=== PATIENT | female | born 1935 | race Caucasian/White ===

== ENCOUNTER → 2018-02-06 | Outpatient (CLI) | payer MEDICARE, OTHER ==
[2018-02-06 14:15] LABS: BASO % 0.3 % (0.0-1.0); EOS # 0.1 10^3/uL (0.0-0.50); EOS % 0.5 % (0.0-3.0); HEMATOCRIT 40.1 % (36.0-47.0); HEMOGLOBIN 12.4 g/dl (12.0-15.5); IMMATURE GRANULOCYTE % 0.6 % (0-3.0); LYMPH # 1.1 10^3/uL (1.5-4.5); LYMPH % 10.2 % (24.0-44.0); MEAN CORPUSCULAR HEMOGLOBIN 26.5 pg (27.0-33.0); MEAN CORPUSCULAR HGB CONC 30.9 g/dl (32.0-36.5); MEAN CORPUSCULAR VOLUME 85.7 fl (80.0-96.0); MONO # 0.6 10^3/uL (0.0-0.8); MONO % 5.7 % (0.0-5.0); NEUTROPHILS # 8.6 10^3/uL (1.8-7.7); NEUTROPHILS % 82.7 % (36.0-66.0); PLATELET COUNT, AUTOMATED 296 10^3/uL (150-450); RED BLOOD COUNT 4.68 10^6/uL (4.00-5.40); RED CELL DISTRIBUTION WIDTH 14.2 % (11.5-14.5); WHITE BLOOD COUNT 10.4 10^3/uL (4.0-10.0)
[2018-02-06 14:47] LABS: ALBUMIN 3.4 GM/DL (3.2-5.2); ALBUMIN/GLOBULIN RATIO 0.83 (1.00-1.93); ALKALINE PHOSPHATASE 79 U/L (45-117); ALT/SGPT 21 U/L (12-78); ANION GAP 10 MEQ/L (8-16); AST/SGOT 13 U/L (7-37); BILIRUBIN,TOTAL 0.7 MG/DL (0.2-1.0); BLOOD UREA NITROGEN 35 MG/DL (7-18); CALCIUM LEVEL 9.7 MG/DL (8.8-10.2); CARBON DIOXIDE LEVEL 28 MEQ/L (21-32); CHLORIDE LEVEL 107 MEQ/L (98-107); CREATININE FOR GFR 1.47 MG/DL (0.55-1.30); FREE T4 1.34 NG/DL (0.76-1.46); GLOMERULAR FILTRATION RATE 36.3 (>32); GLUCOSE, FASTING 109 MG/DL (70-100); MAGNESIUM LEVEL 2.2 MG/DL (1.8-2.4); NT-PRO BNP 2890 PG/ML (<450); SODIUM LEVEL 145 MEQ/L (136-145); TOTAL PROTEIN 7.5 GM/DL (6.4-8.2)
[2018-02-06 14:49] LABS: POTASSIUM SERUM 5.3 MEQ/L (3.5-5.1)
== END ==
LOC: M WUC 10:34
DX: I48.91 Unspecified atrial fibrillation (principal)

== ENCOUNTER 2018-02-07 16:32 | Inpatient (IN) | payer MEDICARE, OTHER ==
[2018-02-07 17:55] LABS: BASO % 0.2 % (0.0-1.0); EOS % 0.4 % (0.0-3.0); LYMPH # 1.2 10^3/uL (1.5-4.5); LYMPH % 11.5 % (24.0-44.0); MEAN CORPUSCULAR HEMOGLOBIN 27.1 pg (27.0-33.0); MEAN CORPUSCULAR HGB CONC 31.6 g/dl (32.0-36.5); MEAN CORPUSCULAR VOLUME 85.8 fl (80.0-96.0); MONO # 1.1 10^3/uL (0.0-0.8); MONO % 10.4 % (0.0-5.0); NEUTROPHILS # 8.1 10^3/uL (1.8-7.7); NEUTROPHILS % 76.5 % (36.0-66.0); PLATELET COUNT, AUTOMATED 261 10^3/uL (150-450); RED BLOOD COUNT 4.43 10^6/uL (4.00-5.40); RED CELL DISTRIBUTION WIDTH 14.2 % (11.5-14.5); WHITE BLOOD COUNT 10.5 10^3/uL (4.0-10.0)
[2018-02-07 18:19] LABS: INR 1.28; PROTHROMBIN TIME 16.2 SECONDS (12.1-14.4)
[2018-02-07 18:20] LABS: PARTIAL THROMBOPLASTIN TIME 34.6 SECONDS (25.4-37.6)
[2018-02-07 18:25] LABS: ANION GAP 8 MEQ/L (8-16); BLOOD UREA NITROGEN 31 MG/DL (7-18); CALCIUM LEVEL 9.1 MG/DL (8.8-10.2); CARBON DIOXIDE LEVEL 24 MEQ/L (21-32); CHLORIDE LEVEL 111 MEQ/L (98-107); CK-MB VALUE MASS < 1.0 NG/ML (<3.6); CPK CREATINE PHOSPHOKINASE 126 U/L (26-192); CREATININE FOR GFR 1.43 MG/DL (0.55-1.30); GLOMERULAR FILTRATION RATE 37.5 (>32); GLUCOSE, FASTING 99 MG/DL (70-100); MB/CK RELATIVE INDEX 0.79 (< OR =4); SODIUM LEVEL 143 MEQ/L (136-145); TROPONIN I < 0.02 NG/ML (< 0.10)
[2018-02-07 18:30] LABS: POTASSIUM SERUM 5.3 MEQ/L (3.5-5.1)
[2018-02-07 21:00] LABS: ERYTHROCYTE SEDIMENTATION RATE 61 mm/hr (0-30)
[2018-02-07] MEDS: METOPROLOL 5 MG/5 ML VIAL IV ×4 (21:00→21:14)
[2018-02-07] MEDS: METOPROLOL TART 50 MG TAB PO (21:00)
[2018-02-07] MEDS: ceFAZolin SOD 1 GM in D5W MINI-BAG PLUS 50 ML IV (21:10)
[2018-02-07] MEDS ORDERED: MORPHINE 4 MG/ML 1ML VIAL/SYRINGE (J2270) IV (21:15)
[2018-02-07] MEDS ORDERED: BISACODYL 5 MG TAB PO (21:15)
[2018-02-07] MEDS ORDERED: ONDANSETRON 4MG/2ML VIAL (J2405) IV (21:15)
[2018-02-07] MEDS ORDERED: BISACODYL 10 MG SUPP PR (21:15)
[2018-02-07] MEDS ORDERED: METOPROLOL 5 MG/5 ML VIAL IV (22:30)
[2018-02-07] MEDS: CLINDAMYCIN 600 MG in APPROPRIATE DILUENT 1 EA IV (23:00)
[2018-02-07 23:06] LABS: CK-MB VALUE MASS 1.2 NG/ML (<3.6); CPK CREATINE PHOSPHOKINASE 62 U/L (26-192); MB/CK RELATIVE INDEX 1.93 (< OR =4); TROPONIN I < 0.02 NG/ML (< 0.10)
[2018-02-08] MEDS: CLINDAMYCIN 600 MG in APPROPRIATE DILUENT 1 EA IV ×4 (04:57→23:04)
[2018-02-08] MEDS: FUROSEMIDE 40 MG/4 ML VIAL (J1940) IV ×5 (04:57→23:05)
[2018-02-08] MEDS: HEPARIN SOD (PORCINE) 5000 UNITS/ML VIAL SC ×2 (05:02→15:36)
[2018-02-08 08:24] LABS: HEMATOCRIT 35.6 % (36.0-47.0); HEMOGLOBIN 11.3 g/dl (12.0-15.5); MEAN CORPUSCULAR HEMOGLOBIN 26.4 pg (27.0-33.0); MEAN CORPUSCULAR HGB CONC 31.7 g/dl (32.0-36.5); MEAN CORPUSCULAR VOLUME 83.2 fl (80.0-96.0); PLATELET COUNT, AUTOMATED 250 10^3/uL (150-450); RED BLOOD COUNT 4.28 10^6/uL (4.00-5.40); RED CELL DISTRIBUTION WIDTH 14.3 % (11.5-14.5); WHITE BLOOD COUNT 10.9 10^3/uL (4.0-10.0)
[2018-02-08 08:42] LABS: ANION GAP 9 MEQ/L (8-16); BLOOD UREA NITROGEN 30 MG/DL (7-18); CALCIUM LEVEL 9.3 MG/DL (8.8-10.2); CARBON DIOXIDE LEVEL 28 MEQ/L (21-32); CHLORIDE LEVEL 106 MEQ/L (98-107); CPK CREATINE PHOSPHOKINASE 54 U/L (26-192); CREATININE FOR GFR 1.45 MG/DL (0.55-1.30); GLOMERULAR FILTRATION RATE 36.9 (>32); GLUCOSE, FASTING 126 MG/DL (70-100); MAGNESIUM LEVEL 1.7 MG/DL (1.8-2.4); POTASSIUM SERUM 3.7 MEQ/L (3.5-5.1); SODIUM LEVEL 143 MEQ/L (136-145); TROPONIN I < 0.02 NG/ML (< 0.10)
[2018-02-08 08:43] LABS: CK-MB VALUE MASS < 1.0 NG/ML (<3.6); MB/CK RELATIVE INDEX 1.85 (< OR =4)
[2018-02-08] MEDS: METOPROLOL TART 25 MG TABLET PO ×2 (08:52→20:22)
[2018-02-08] MEDS: MAG SULF 1GM/100ML (MAG RUN) 1 GM in APPROPRIATE DILUENT 1 EA IV (13:11)
[2018-02-08 13:55] LABS: CK-MB VALUE MASS < 1.0 NG/ML (<3.6); CPK CREATINE PHOSPHOKINASE 53 U/L (26-192); MB/CK RELATIVE INDEX 1.88 (< OR =4); TROPONIN I < 0.02 NG/ML (< 0.10)
[2018-02-08] MEDS: RIVAROXABAN 15 MG TAB (XARELTO) PO (20:23)
[2018-02-09] MEDS: METOPROLOL TART 25 MG TABLET PO ×5 (01:18→23:25)
[2018-02-09] MEDS: CLINDAMYCIN 600 MG in APPROPRIATE DILUENT 1 EA IV ×2 (06:15→10:59)
[2018-02-09 07:32] LABS: HEMATOCRIT 36.1 % (36.0-47.0); HEMOGLOBIN 11.4 g/dl (12.0-15.5); MEAN CORPUSCULAR HEMOGLOBIN 26.5 pg (27.0-33.0); MEAN CORPUSCULAR HGB CONC 31.6 g/dl (32.0-36.5); MEAN CORPUSCULAR VOLUME 83.8 fl (80.0-96.0); PLATELET COUNT, AUTOMATED 239 10^3/uL (150-450); RED BLOOD COUNT 4.31 10^6/uL (4.00-5.40); RED CELL DISTRIBUTION WIDTH 14.2 % (11.5-14.5); WHITE BLOOD COUNT 8.3 10^3/uL (4.0-10.0)
[2018-02-09 07:58] LABS: ANION GAP 7 MEQ/L (8-16); BLOOD UREA NITROGEN 36 MG/DL (7-18); CALCIUM LEVEL 8.7 MG/DL (8.8-10.2); CARBON DIOXIDE LEVEL 32 MEQ/L (21-32); CHLORIDE LEVEL 103 MEQ/L (98-107); CREATININE FOR GFR 1.57 MG/DL (0.55-1.30); GLOMERULAR FILTRATION RATE 33.7 (>32); GLUCOSE, FASTING 125 MG/DL (70-100); MAGNESIUM LEVEL 1.9 MG/DL (1.8-2.4); POTASSIUM SERUM 3.8 MEQ/L (3.5-5.1); SODIUM LEVEL 142 MEQ/L (136-145)
[2018-02-09] MEDS: AUGMENTIN 500 MG TAB PO ×2 (16:05→23:25)
[2018-02-09] MEDS: RIVAROXABAN 15 MG TAB (XARELTO) PO (18:07)
[2018-02-09] MEDS: SILVER SULFADIAZINE 1% CR 50 GM JAR TOP (23:25)
[2018-02-09] MEDS: FUROSEMIDE 40 MG/4 ML VIAL (J1940) IV (23:25)
[2018-02-10] MEDS: ACETAMINOPHEN TAB 650MG DOSE (2X325MG) PO (03:22)
[2018-02-10] MEDS: METOPROLOL TART 25 MG TABLET PO (05:06)
[2018-02-10 05:22] LABS: HEMATOCRIT 36.4 % (36.0-47.0); HEMOGLOBIN 11.6 g/dl (12.0-15.5); MEAN CORPUSCULAR HEMOGLOBIN 26.6 pg (27.0-33.0); MEAN CORPUSCULAR HGB CONC 31.9 g/dl (32.0-36.5); MEAN CORPUSCULAR VOLUME 83.5 fl (80.0-96.0); PLATELET COUNT, AUTOMATED 255 10^3/uL (150-450); RED BLOOD COUNT 4.36 10^6/uL (4.00-5.40); RED CELL DISTRIBUTION WIDTH 13.8 % (11.5-14.5)
[2018-02-10 05:35] LABS: ANION GAP 11 MEQ/L (8-16); BLOOD UREA NITROGEN 40 MG/DL (7-18); CALCIUM LEVEL 8.7 MG/DL (8.8-10.2); CARBON DIOXIDE LEVEL 29 MEQ/L (21-32); CHLORIDE LEVEL 101 MEQ/L (98-107); CREATININE FOR GFR 1.56 MG/DL (0.55-1.30); GLOMERULAR FILTRATION RATE 33.9 (>32); GLUCOSE, FASTING 132 MG/DL (70-100); MAGNESIUM LEVEL 1.8 MG/DL (1.8-2.4); POTASSIUM SERUM 3.6 MEQ/L (3.5-5.1); SODIUM LEVEL 141 MEQ/L (136-145)
[2018-02-10 08:00] LABS: C REACTIVE PROTEIN QUANTITATIV 8.52 MG/DL (0.00-0.30)
[2018-02-10 08:02] LABS: ERYTHROCYTE SEDIMENTATION RATE 70 mm/hr (0-30)
[2018-02-10] MEDS: AUGMENTIN 500 MG TAB PO ×2 (08:15→20:42)
[2018-02-10] MEDS: SILVER SULFADIAZINE 1% CR 50 GM JAR TOP (11:13)
[2018-02-10 12:21] LABS: APPEARANCE, URINE CLEAR (CLEAR); BACTERIA, URINE AUTO NEGATIVE (NEGATIVE); BILIRUBIN, URINE AUTO NEGATIVE (NEGATIVE); BLOOD, URINE BLOOD NEGATIVE (NEGATIVE); COLOR, URINE YELLOW (YELLOW); GLUCOSE, URINE (UA) AUTO NEGATIVE (NEGATIVE); KETONE, URINE AUTO NEGATIVE (NEGATIVE); LEUKOCYTE ESTERASE, URINE AUTO NEGATIVE (NEGATIVE); NITRITE, URINE AUTO NEGATIVE (NEGATIVE); PROTEIN, URINE AUTO NEGATIVE (NEGATIVE); RBC, URINE AUTO 0 /HPF (0-3); SPECIFIC GRAVITY URINE AUTO 1.016 (1.002-1.035); SQUAMOUS EPITHELIAL CELL UR AU 2 /HPF (0-6); UROBILINOGEN, URINE AUTO 0.2 mg/dL (0.0-2.0); WBC, URINE AUTO 2 /HPF (0-3)
[2018-02-10] MEDS: LOSARTAN 50 MG TAB PO (13:21)
[2018-02-10] MEDS: METOPROLOL TART 50 MG TAB PO ×2 (13:22→20:43)
[2018-02-10 14:19] LABS: RHEUMATOID FACTOR QUANT < 10.0 IU/ML (<15.0)
[2018-02-10] MEDS: RIVAROXABAN 15 MG TAB (XARELTO) PO (18:23)
[2018-02-11 05:13] LABS: HEMATOCRIT 36.1 % (36.0-47.0); HEMOGLOBIN 11.5 g/dl (12.0-15.5); MEAN CORPUSCULAR HEMOGLOBIN 26.5 pg (27.0-33.0); MEAN CORPUSCULAR HGB CONC 31.9 g/dl (32.0-36.5); MEAN CORPUSCULAR VOLUME 83.2 fl (80.0-96.0); PLATELET COUNT, AUTOMATED 256 10^3/uL (150-450); RED BLOOD COUNT 4.34 10^6/uL (4.00-5.40); RED CELL DISTRIBUTION WIDTH 13.9 % (11.5-14.5); WHITE BLOOD COUNT 9.5 10^3/uL (4.0-10.0)
[2018-02-11 05:28] LABS: ANION GAP 8 MEQ/L (8-16); BLOOD UREA NITROGEN 40 MG/DL (7-18); CALCIUM LEVEL 8.7 MG/DL (8.8-10.2); CARBON DIOXIDE LEVEL 30 MEQ/L (21-32); CHLORIDE LEVEL 104 MEQ/L (98-107); CREATININE FOR GFR 1.38 MG/DL (0.55-1.30); GLOMERULAR FILTRATION RATE 39.1 (>32); GLUCOSE, FASTING 122 MG/DL (70-100); MAGNESIUM LEVEL 1.9 MG/DL (1.8-2.4); POTASSIUM SERUM 3.7 MEQ/L (3.5-5.1); SODIUM LEVEL 142 MEQ/L (136-145)
[2018-02-11] MEDS: METOPROLOL TART 50 MG TAB PO ×2 (06:09→13:44)
[2018-02-11] MEDS: LOSARTAN 50 MG TAB PO (08:34)
[2018-02-11] MEDS: AUGMENTIN 500 MG TAB PO (10:20)
[2018-02-11] MEDS: RIVAROXABAN 15 MG TAB (XARELTO) PO (17:57)
[2018-02-12 14:22] LABS: ANTINUCLEAR ANTIBODIES DIRECT Negative (Negative)
[2018-02-14 00:10] LABS: ANCA-ATYPICAL <1:20 titer (Neg:<1:20); CYTOPLASMIC NEUTROP AB ANCA-C <1:20 titer (Neg:<1:20); PERINUCLEAR AB ANCA-P <1:20 titer (Neg:<1:20)
== END 2018-02-11 18:35 | disposition home health service (06) | DRG 310 ==
LOC: M PCU 02-09 14:28 → M ED 16:32 → M ED INP 21:01
DX: I48.91 Unspecified atrial fibrillation (principal); L95.9 Vasculitis limited to the skin, unspecified; I10 Essential (primary) hypertension; M10.9 Gout, unspecified; Z95.3 Presence of xenogenic heart valve; Z79.899 Other long term (current) drug therapy; Z90.710 Acquired absence of both cervix and uterus; E66.01 Morbid (severe) obesity due to excess calories; Z68.38 Body mass index [BMI] 38.0-38.9, adult

== ENCOUNTER 2022-05-10 11:13 | Inpatient (IN) | payer OTHER, MEDICARE ==
[2022-05-10] VITALS (9 sets, daily range): BP systolic 80–100; BP diastolic 40–60
[~2022-05-10] VITALS: Ht 157.5 cm; Wt 99.2 kg
[~2022-05-10 11:13] MED LIST: ASPI-527 PO; LOSA100T8 PO; LOSA50TA28 PO; METO1TAB87 PO; METO75TA PO; XARE15TA PO
[2022-05-10 12:36] LABS: HEMATOCRIT 25.1 % (36.0-47.0); HEMOGLOBIN 8.1 g/dl (12.0-15.5); MEAN CORPUSCULAR HEMOGLOBIN 27.4 pg (27.0-33.0); MEAN CORPUSCULAR HGB CONC 32.3 g/dl (32.0-36.5); MEAN CORPUSCULAR VOLUME 84.8 fl (80.0-96.0); RED BLOOD COUNT 2.96 10^6/uL (4.00-5.40); WHITE BLOOD COUNT 7.2 10^3/uL (4.0-10.0)
[2022-05-10 12:56] LABS: PLATELET COUNT, AUTOMATED 53 10^3/uL (150-450)
[2022-05-10 13:00] LABS: ANISOCYTOSIS 1+; LYMPHOCYTES 5 % (16-44); NEUTROPHILS 81 % (28-66); PLATELET ESTIMATE DECREASED (NORMAL)
[2022-05-10 13:02] LABS: BURR CELLS 1+; OVALOCYTES 1+
[2022-05-10 13:16] LABS: RSV AMPLIFICATION NEGATIVE (NEGATIVE)
[2022-05-10 13:22] LABS: ALBUMIN 2.5 G/DL (3.2-5.2); BILIRUBIN,DIRECT 2.1 MG/DL (<0.4); BILIRUBIN,TOTAL 2.9 MG/DL (0.3-1.2); CALCIUM LEVEL 8.2 MG/DL (8.3-10.6); CREATININE FOR GFR 3.04 MG/DL (0.55-1.30); GLOMERULAR FILTRATION RATE 15.5 (>32); POTASSIUM SERUM 4.2 MMOL/L (3.5-5.1); TOTAL PROTEIN 5.9 G/DL (5.7-8.2)
[2022-05-10] MEDS ORDERED: DIGOXIN INJ 0.5 MG/2 ML AMP IV STA (13:23)
[2022-05-10] MEDS ORDERED: cefTRIAXone SOD 2 GM in D5W MINI-BAG PLUS 50 ML IV ONE (13:25)
[2022-05-10] MEDS ORDERED: NS 2,760 ML in IV 1 EA IV ONE (13:25)
[2022-05-10 14:00] LABS: APPEARANCE, URINE MANUAL CLOUDY (CLEAR); COLOR, URINE MANUAL DK YELLOW (YELLOW)
[2022-05-10 14:01] LABS: BILIRUBIN, URINE MANUAL NEGATIVE (NEGATIVE); BLOOD URINE MANUAL POSITIVE (NEGATIVE); GLUCOSE, URINE (UA) MANUAL NEGATIVE (NEGATIVE); KETONE, URINE MANUAL NEGATIVE (NEGATIVE); LEUKOCYTE ESTERASE, URINE MAN POSITIVE (NEGATIVE); NITRITE, URINE MANUAL POSITIVE (NEGATIVE); PROTEIN, URINE MANUAL 1+ mg/dL (NEGATIVE); SPECIFIC GRAVITY,URINE MANUAL 1.025 (1.002-1.035); UROBILINOGEN, URINE MANUAL NORMAL (NORMAL)
[2022-05-10 14:14] LABS: AMORPHOUS SEDIMENT, URINE LARGE AMOUNT (NEGATIVE); BACTERIA, URINE LARGE AMOUNT; HYALINE CAST, URINE NONE SEEN /lpf (0-1); MUCUS, URINE SMALL AMOUNT (NEGATIVE); SQUAMOUS EPITHELIAL CELL URINE MOD AMOUNT /hpf (SMALL AMT); TRANSITIONAL EPI CELLS, URINE SMALL AMOUNT /hpf; WBC, URINE 20-30 /hpf (0-3)
[2022-05-10] MEDS ORDERED: PANTOPRAZOLE SODIUM 40 MG in D5W 50 ML IV SCH (14:40)
[2022-05-10] MEDS ORDERED: PANTOPRAZOLE 40MG VIAL IV ONE (14:40)
[2022-05-10] MEDS ORDERED: VITMTA PO (15:16)
[2022-05-10] MEDS ORDERED: TARTCAP PO (15:16)
[2022-05-10] MEDS ORDERED: XARE15TA PO (15:16)
[2022-05-10] MEDS ORDERED: LOSA100T8 PO (15:16)
[2022-05-10] MEDS ORDERED: ALEV220T22 PO (15:17)
[2022-05-10] MEDS ORDERED: HOME MED LIST COMPLETE! XX SCH (15:20)
[2022-05-10 17:00] LABS: FREE T4 1.32 NG/DL (0.89-1.76); MAGNESIUM LEVEL 1.7 MG/DL (1.8-2.4); PERCENT SATURATION 2.7 % (13.2-45.0); THYROID STIMULATING HORMONE 2.275 uIU/ML (0.55-4.78)
[2022-05-10 17:22] LABS: FOLATE 9.56 NG/ML (>5.4)
[2022-05-10 18:36] LABS: INR 3.85; PROTHROMBIN TIME 38.5 SECONDS (12.5-14.5)
[2022-05-10 19:48] LABS: HEMATOCRIT 31.9 % (36.0-47.0); MEAN CORPUSCULAR HEMOGLOBIN 27.3 pg (27.0-33.0); MEAN CORPUSCULAR HGB CONC 32.9 g/dl (32.0-36.5); MEAN CORPUSCULAR VOLUME 82.9 fl (80.0-96.0); RED BLOOD COUNT 3.85 10^6/uL (4.00-5.40); WHITE BLOOD COUNT 12.3 10^3/uL (4.0-10.0)
[2022-05-10 19:49] LABS: HEMOGLOBIN 10.5 g/dl (12.0-15.5); PLATELET COUNT, AUTOMATED 69 10^3/uL (150-450)
[2022-05-10] MEDS: MAG SULF 1GM/100ML (MAG RUN) 1 GM in IV 1 EA IV SCH ×2 (20:04→21:46)
[2022-05-10] MEDS: SUCRALFATE 1 GM TAB PO SCH (20:06)
[2022-05-11] VITALS (17 sets, daily range): BP systolic 83–114; BP diastolic 45–60
[2022-05-11 03:00] LABS: HEMATOCRIT 34.5 % (36.0-47.0); HEMOGLOBIN 11.6 g/dl (12.0-15.5); MEAN CORPUSCULAR HEMOGLOBIN 27.6 pg (27.0-33.0); MEAN CORPUSCULAR HGB CONC 33.6 g/dl (32.0-36.5); MEAN CORPUSCULAR VOLUME 81.9 fl (80.0-96.0); RED BLOOD COUNT 4.21 10^6/uL (4.00-5.40); WHITE BLOOD COUNT 11.5 10^3/uL (4.0-10.0)
[2022-05-11 03:14] LABS: PLATELET COUNT, AUTOMATED 64 10^3/uL (150-450)
[2022-05-11 03:30] LABS: INR 3.15; PROTHROMBIN TIME 32.8 SECONDS (12.5-14.5)
[2022-05-11 03:33] LABS: D-DIMER QUANT 2413.6 ng/ml (<500)
[2022-05-11 03:40] LABS: PLTBLUE- EDTA FREE CALC 55 K/mm3 (172-450)
[2022-05-11 04:21] LABS: PLTBLUE- EDTA FREE MACHINE 50 10^3/uL (172-450)
[2022-05-11 04:23] LABS: ALBUMIN 1.9 G/DL (3.2-5.2); ALKALINE PHOSPHATASE 132 U/L (46-116); ALT/SGPT 30 U/L (7.0-40); AST/SGOT 59 U/L (<34); BILIRUBIN,TOTAL 2.7 MG/DL (0.3-1.2); BLOOD UREA NITROGEN 63 MG/DL (9-23); CALCIUM LEVEL 7.1 MG/DL (8.3-10.6); CARBON DIOXIDE LEVEL 20 MMOL/L (20-31); CHLORIDE LEVEL 107 MMOL/L (98-107); CREATININE FOR GFR 2.81 MG/DL (0.55-1.30); GLUCOSE, FASTING 95 MG/DL (74-106); HEPATITIS B CORE ANTIBODY IGM NEGATIVE (NEGATIVE); HEPATITIS B SURFACE ANTIGEN NEGATIVE (NEGATIVE); HEPATITIS C VIRUS ABY INDEX 0.1 INDEX (<0.8); MAGNESIUM LEVEL 1.8 MG/DL (1.8-2.4); POTASSIUM SERUM 3.9 MMOL/L (3.5-5.1); SODIUM LEVEL 137 MMOL/L (136-145); TOTAL PROTEIN 4.6 G/DL (5.7-8.2)
[2022-05-11] MEDS ORDERED: LR 1,000 ML IV ONE (07:00)
[2022-05-11] MEDS: PANTOPRAZOLE 40MG VIAL IV SCH ×2 (09:30→19:53)
[2022-05-11] MEDS: MAGNESIUM OXIDE 400MG TAB (MAG-OX) PO SCH ×3 (09:30→19:54)
[2022-05-11] MEDS: SUCRALFATE 1 GM TAB PO SCH ×4 (09:30→19:53)
[2022-05-11 12:11] LABS: HEMATOCRIT 35.6 % (36.0-47.0); HEMOGLOBIN 11.9 g/dl (12.0-15.5); MEAN CORPUSCULAR HEMOGLOBIN 27.4 pg (27.0-33.0); MEAN CORPUSCULAR HGB CONC 33.4 g/dl (32.0-36.5); RED BLOOD COUNT 4.34 10^6/uL (4.00-5.40); WHITE BLOOD COUNT 13.8 10^3/uL (4.0-10.0)
[2022-05-11 13:22] LABS: PLATELET COUNT, AUTOMATED 58 10^3/uL (150-450)
[2022-05-11] MEDS ORDERED: FERRIC CARBOXYMALTOSE INJ 1,000 MG, VIAL MATE ADAPTER 1 EACH in NS 250 ML IV ONE (14:00)
[2022-05-11] MEDS ORDERED: FERRIC CARBOXYMALTOSE INJ 1,000 MG in NS 250 ML IV ONE (15:00)
[2022-05-11] MEDS: cefTRIAXone SOD 1 GM in D5W MINI-BAG PLUS 50 ML IV SCH (15:21)
[2022-05-11 17:21] LABS: HEMATOCRIT 36.1 % (36.0-47.0); HEMOGLOBIN 11.9 g/dl (12.0-15.5); WHITE BLOOD COUNT 11.8 10^3/uL (4.0-10.0)
[2022-05-11 17:25] LABS: PLATELET COUNT, AUTOMATED 55 10^3/uL (150-450)
[2022-05-11 17:45] LABS: INR 1.82; PROTHROMBIN TIME 21.4 SECONDS (12.5-14.5)
[2022-05-12] VITALS: BP 106/52
[2022-05-12 04:00] VITALS: BP 100/50
[2022-05-12 04:58] LABS: HEMATOCRIT 33.8 % (36.0-47.0); HEMOGLOBIN 11.4 g/dl (12.0-15.5); MEAN CORPUSCULAR HEMOGLOBIN 27.3 pg (27.0-33.0); MEAN CORPUSCULAR HGB CONC 33.7 g/dl (32.0-36.5); MEAN CORPUSCULAR VOLUME 81.1 fl (80.0-96.0); RED BLOOD COUNT 4.17 10^6/uL (4.00-5.40); WHITE BLOOD COUNT 12.8 10^3/uL (4.0-10.0)
[2022-05-12 05:08] LABS: INR 1.62; PROTHROMBIN TIME 19.5 SECONDS (12.5-14.5)
[2022-05-12 05:21] LABS: PLATELET COUNT, AUTOMATED 65 10^3/uL (150-450)
[2022-05-12 05:35] LABS: EOSINOPHILS 2 % (0-3); LYMPHOCYTES 4 % (16-44); MONOCYTES 7 % (0-5); NEUTROPHILS 87 % (28-66)
[2022-05-12 05:36] LABS: ANISOCYTOSIS 1+; PLATELET ESTIMATE DECREASED (NORMAL)
[2022-05-12 07:27] LABS: ALBUMIN 2.4 G/DL (3.2-5.2); BILIRUBIN,DIRECT 2.5 MG/DL (<0.4); BILIRUBIN,TOTAL 3.2 MG/DL (0.3-1.2); CALCIUM LEVEL 8.1 MG/DL (8.3-10.6); CREATININE FOR GFR 2.52 MG/DL (0.55-1.30); GLOMERULAR FILTRATION RATE 19.3 (>32); MAGNESIUM LEVEL 2.2 MG/DL (1.8-2.4); POTASSIUM SERUM 3.7 MMOL/L (3.5-5.1); TOTAL PROTEIN 5.7 G/DL (5.7-8.2)
[2022-05-12 08:21] VITALS: BP 112/56
[2022-05-12] MEDS: SUCRALFATE 1 GM TAB PO SCH ×4 (08:32→21:10)
[2022-05-12] MEDS: MAGNESIUM OXIDE 400MG TAB (MAG-OX) PO SCH ×3 (08:32→21:10)
[2022-05-12] MEDS: PANTOPRAZOLE 40MG VIAL IV SCH (08:32)
[2022-05-12] MEDS ORDERED: SENNA 8.6 MG TAB (SENOKOT) PO PRN (08:35)
[2022-05-12 10:44] LABS: HEMATOCRIT 34.8 % (36.0-47.0); HEMOGLOBIN 11.6 g/dl (12.0-15.5); MEAN CORPUSCULAR HEMOGLOBIN 27.2 pg (27.0-33.0); MEAN CORPUSCULAR HGB CONC 33.3 g/dl (32.0-36.5); MEAN CORPUSCULAR VOLUME 81.7 fl (80.0-96.0); RED BLOOD COUNT 4.26 10^6/uL (4.00-5.40); WHITE BLOOD COUNT 13.6 10^3/uL (4.0-10.0)
[2022-05-12 10:48] LABS: PLATELET COUNT, AUTOMATED 71 10^3/uL (150-450)
[2022-05-12] MEDS: MIRALAX *UNIT DOSE* 17GM PACKET PO SCH ×2 (10:49→21:10)
[2022-05-12] MEDS: METAMUCIL (PSYLLIUM) PACKET PO SCH ×2 (10:49→21:10)
[2022-05-12 11:34] VITALS: BP 114/56
[2022-05-12 12:32] LABS: ACETONE/KETONE 7.24 MG/DL (<2.81)
[2022-05-12 12:54] LABS: VENOUS BASE EXCESS -3.6 (-2.0-2.0); VENOUS HCO3 21.1 MEQ/L (23.0-27.0); VENOUS O2 SATURATION 98.7 % (60.0-80.0); VENOUS PARTIAL PRESSURE O2 138.9 mmHg (30.0-50.0); VENOUS PH 7.373 UNITS (7.330-7.430); VENOUS STANDARD HCO3 21.5 MEQ/L; VENOUS TOTAL CO2 22.2 MEQ/L (24.0-28.0)
[2022-05-12] MEDS ORDERED: LR 1,000 ML IV SCH (13:30)
[2022-05-12] MEDS: cefTRIAXone SOD 1 GM in D5W MINI-BAG PLUS 50 ML IV SCH (14:29)
[2022-05-12 15:41] VITALS: BP 122/58
[2022-05-12 19:34] LABS: HEMATOCRIT 34.8 % (36.0-47.0); HEMOGLOBIN 11.6 g/dl (12.0-15.5); MEAN CORPUSCULAR HGB CONC 33.3 g/dl (32.0-36.5); MEAN CORPUSCULAR VOLUME 81.1 fl (80.0-96.0); RED BLOOD COUNT 4.29 10^6/uL (4.00-5.40); WHITE BLOOD COUNT 11.3 10^3/uL (4.0-10.0)
[2022-05-12 19:45] LABS: PLATELET COUNT, AUTOMATED 68 10^3/uL (150-450)
[2022-05-12 20:00] VITALS: BP 114/53
[2022-05-12] MEDS: PANTOPRAZOLE 40MG TAB (PROTONIX) PO SCH (21:11)
[2022-05-12] MEDS: NYSTATIN 100,000 UNITS/GM TOPICAL PWD 15GM TOP SCH (21:11)
[2022-05-13] VITALS: BP 118/56
[2022-05-13 04:00] VITALS: BP 112/57
[2022-05-13 05:50] LABS: BASO # 0.1 10^3/uL (0.0-0.2); BASO % 0.4 % (0.0-1.0); EOS # 0.1 10^3/uL (0.0-0.5); EOS % 0.6 % (0.0-3.0); HEMATOCRIT 34.7 % (36.0-47.0); HEMOGLOBIN 11.5 g/dl (12.0-15.5); LYMPH # 0.6 10^3/uL (1.5-5.0); LYMPH % 5.5 % (24.0-44.0); MEAN CORPUSCULAR HEMOGLOBIN 26.9 pg (27.0-33.0); MEAN CORPUSCULAR HGB CONC 33.1 g/dl (32.0-36.5); MEAN CORPUSCULAR VOLUME 81.1 fl (80.0-96.0); MONO # 0.7 10^3/uL (0.0-0.8); MONO % 6.1 % (2.0-8.0); NEUTROPHILS # 9.7 10^3/uL (1.5-8.5); NEUTROPHILS % 84.1 % (36.0-66.0); RED BLOOD COUNT 4.28 10^6/uL (4.00-5.40); WHITE BLOOD COUNT 11.5 10^3/uL (4.0-10.0)
[2022-05-13 05:51] LABS: PLATELET COUNT, AUTOMATED 75 10^3/uL (150-450)
[2022-05-13 06:02] LABS: INR 1.74; PROTHROMBIN TIME 20.7 SECONDS (12.5-14.5)
[2022-05-13 06:47] LABS: ALBUMIN 1.9 G/DL (3.2-5.2); BILIRUBIN,DIRECT 4.2 MG/DL (<0.4); BILIRUBIN,TOTAL 5.2 MG/DL (0.3-1.2); CALCIUM LEVEL 7.8 MG/DL (8.3-10.6); GLOMERULAR FILTRATION RATE 25.2 (>32); MAGNESIUM LEVEL 2.3 MG/DL (1.8-2.4); POTASSIUM SERUM 3.8 MMOL/L (3.5-5.1)
[2022-05-13 07:03] LABS: ACETONE/KETONE 2.61 MG/DL (<2.81)
[2022-05-13] MEDS ORDERED: LevoFLOXacin IV 750 MG in IV 1 EA IV SCH (07:20)
[2022-05-13 08:00] VITALS: BP 134/65
[2022-05-13] MEDS: SUCRALFATE 1 GM TAB PO SCH ×4 (09:57→20:44)
[2022-05-13] MEDS: MIRALAX *UNIT DOSE* 17GM PACKET PO SCH ×2 (09:58→20:43)
[2022-05-13] MEDS: NYSTATIN 100,000 UNITS/GM TOPICAL PWD 15GM TOP SCH ×2 (09:58→20:44)
[2022-05-13] MEDS: MAGNESIUM OXIDE 400MG TAB (MAG-OX) PO SCH ×3 (09:58→20:44)
[2022-05-13] MEDS: METAMUCIL (PSYLLIUM) PACKET PO SCH ×2 (09:58→20:43)
[2022-05-13] MEDS: PANTOPRAZOLE 40MG TAB (PROTONIX) PO SCH ×2 (09:58→20:44)
[2022-05-13 12:00] VITALS: BP 130/65
[2022-05-13 15:13] LABS: C REACTIVE PROTEIN QUANTITATIV 26.3 MG/DL (<1.0)
[2022-05-13] MEDS: cefTRIAXone SOD 1 GM in D5W MINI-BAG PLUS 50 ML IV SCH (15:30)
[2022-05-13 16:00] VITALS: BP 138/67
[2022-05-13 20:00] VITALS: BP 121/60
[2022-05-14] VITALS: BP 100/47
[2022-05-14 04:00] VITALS: BP 113/80
[2022-05-14 06:37] LABS: BASO # 0.1 10^3/uL (0.0-0.2); BASO % 0.6 % (0.0-1.0); EOS # 0.1 10^3/uL (0.0-0.5); EOS % 0.9 % (0.0-3.0); HEMATOCRIT 36.2 % (36.0-47.0); HEMOGLOBIN 11.8 g/dl (12.0-15.5); LYMPH # 0.7 10^3/uL (1.5-5.0); LYMPH % 6.2 % (24.0-44.0); MEAN CORPUSCULAR HEMOGLOBIN 26.8 pg (27.0-33.0); MEAN CORPUSCULAR HGB CONC 32.6 g/dl (32.0-36.5); MEAN CORPUSCULAR VOLUME 82.1 fl (80.0-96.0); MONO # 0.7 10^3/uL (0.0-0.8); MONO % 6.1 % (2.0-8.0); NEUTROPHILS # 9.1 10^3/uL (1.5-8.5); RED BLOOD COUNT 4.41 10^6/uL (4.00-5.40); WHITE BLOOD COUNT 11.4 10^3/uL (4.0-10.0)
[2022-05-14 06:42] LABS: PLATELET COUNT, AUTOMATED 93 10^3/uL (150-450)
[2022-05-14 06:46] LABS: INR 1.53; PROTHROMBIN TIME 18.7 SECONDS (12.5-14.5)
[2022-05-14 07:03] LABS: ALBUMIN 1.7 G/DL (3.2-5.2); BILIRUBIN,DIRECT 4.5 MG/DL (<0.4); BILIRUBIN,TOTAL 5.9 MG/DL (0.3-1.2); CREATININE FOR GFR 1.62 MG/DL (0.55-1.30); GLOMERULAR FILTRATION RATE 32.1 (>32); MAGNESIUM LEVEL 2.3 MG/DL (1.8-2.4); POTASSIUM SERUM 4.1 MMOL/L (3.5-5.1); TOTAL PROTEIN 5.1 G/DL (5.7-8.2)
[2022-05-14 07:46] LABS: ACETONE/KETONE 2.32 MG/DL (<2.81)
[2022-05-14 07:58] VITALS: BP 135/60
[2022-05-14] MEDS: MAGNESIUM OXIDE 400MG TAB (MAG-OX) PO SCH ×2 (09:17→21:18)
[2022-05-14] MEDS: SUCRALFATE 1 GM TAB PO SCH ×4 (09:17→21:18)
[2022-05-14] MEDS: PANTOPRAZOLE 40MG TAB (PROTONIX) PO SCH ×2 (09:17→21:18)
[2022-05-14] MEDS: MIRALAX *UNIT DOSE* 17GM PACKET PO SCH ×2 (09:17→21:00)
[2022-05-14] MEDS: LACTULOSE 20 GM/30 ML SYRUP UD PO SCH ×3 (09:18→21:17)
[2022-05-14] MEDS: NYSTATIN 100,000 UNITS/GM TOPICAL PWD 15GM TOP SCH ×2 (09:18→21:19)
[2022-05-14] MEDS: METAMUCIL (PSYLLIUM) PACKET PO SCH ×2 (09:18→21:17)
[2022-05-14 12:00] VITALS: BP 142/67
[2022-05-14] MEDS: HEPARIN SOD (PORCINE) 5000UNITS/ML 1ML VIAL/SYRINGE SQ SCH ×2 (13:09→21:18)
[2022-05-14] MEDS: cefTRIAXone SOD 1 GM in D5W MINI-BAG PLUS 50 ML IV SCH (15:24)
[2022-05-14 16:00] VITALS: BP 156/68
[2022-05-14 20:00] VITALS: BP 111/74
[2022-05-15] VITALS (7 sets, daily range): BP systolic 124–142; BP diastolic 59–75
[2022-05-15] MEDS: HEPARIN SOD (PORCINE) 5000UNITS/ML 1ML VIAL/SYRINGE SQ SCH ×3 (05:24→21:56)
[2022-05-15 06:26] LABS: BASO # 0.1 10^3/uL (0.0-0.2); BASO % 0.7 % (0.0-1.0); EOS # 0.1 10^3/uL (0.0-0.5); EOS % 0.8 % (0.0-3.0); HEMATOCRIT 35.8 % (36.0-47.0); HEMOGLOBIN 11.8 g/dl (12.0-15.5); LYMPH # 0.7 10^3/uL (1.5-5.0); LYMPH % 6.3 % (24.0-44.0); MEAN CORPUSCULAR HEMOGLOBIN 27.1 pg (27.0-33.0); MEAN CORPUSCULAR VOLUME 82.3 fl (80.0-96.0); MONO # 0.7 10^3/uL (0.0-0.8); MONO % 5.9 % (2.0-8.0); NEUTROPHILS # 9.4 10^3/uL (1.5-8.5); NEUTROPHILS % 79.9 % (36.0-66.0); PLATELET COUNT, AUTOMATED 111 10^3/uL (150-450); RED BLOOD COUNT 4.35 10^6/uL (4.00-5.40); WHITE BLOOD COUNT 11.8 10^3/uL (4.0-10.0)
[2022-05-15 06:37] LABS: INR 1.49; PROTHROMBIN TIME 18.3 SECONDS (12.5-14.5)
[2022-05-15 06:54] LABS: ALBUMIN 1.6 G/DL (3.2-5.2); BILIRUBIN,DIRECT 4.9 MG/DL (<0.4); BILIRUBIN,TOTAL 6.2 MG/DL (0.3-1.2); CALCIUM LEVEL 7.7 MG/DL (8.3-10.6); CREATININE FOR GFR 1.28 MG/DL (0.55-1.30); GLOMERULAR FILTRATION RATE 42.2 (>32); MAGNESIUM LEVEL 2.1 MG/DL (1.8-2.4); POTASSIUM SERUM 4.2 MMOL/L (3.5-5.1)
[2022-05-15 07:08] LABS: ACETONE/KETONE 1.49 MG/DL (<2.81)
[2022-05-15] MEDS: METAMUCIL (PSYLLIUM) PACKET PO SCH ×2 (09:00→20:33)
[2022-05-15] MEDS: SUCRALFATE 1 GM TAB PO SCH ×4 (11:00→20:34)
[2022-05-15] MEDS: MIRALAX *UNIT DOSE* 17GM PACKET PO SCH ×2 (11:00→20:33)
[2022-05-15] MEDS: LACTULOSE 20 GM/30 ML SYRUP UD PO SCH ×3 (11:00→20:34)
[2022-05-15] MEDS: PANTOPRAZOLE 40MG TAB (PROTONIX) PO SCH ×2 (11:00→20:34)
[2022-05-15] MEDS: NYSTATIN 100,000 UNITS/GM TOPICAL PWD 15GM TOP SCH ×2 (11:01→20:34)
[2022-05-15] MEDS: MAGNESIUM OXIDE 400MG TAB (MAG-OX) PO SCH ×2 (11:01→20:34)
[2022-05-15] MEDS: hydroCHLOROthiazide 12.5 MG CAPSULE PO SCH (14:06)
[2022-05-15] MEDS: LOSARTAN 50MG TABLET PO SCH (14:07)
[2022-05-15 19:13] LABS: HEMATOCRIT 40.4 % (36.0-47.0); MEAN CORPUSCULAR HGB CONC 32.2 g/dl (32.0-36.5); PLATELET COUNT, AUTOMATED 130 10^3/uL (150-450); RED BLOOD COUNT 4.81 10^6/uL (4.00-5.40); WHITE BLOOD COUNT 13.4 10^3/uL (4.0-10.0)
[2022-05-15 19:15] LABS: INR 1.47; PROTHROMBIN TIME 18.1 SECONDS (12.5-14.5)
[2022-05-15 19:17] LABS: ALBUMIN 1.8 G/DL (3.2-5.2)
[2022-05-15 19:18] LABS: IRON (FE) 34 UG/DL (50-170); PERCENT SATURATION 15.1 % (13.2-45.0); TOTAL IRON BINDING CAPACITY 225 UG/DL (250-425)
[2022-05-15 19:22] LABS: ALKALINE PHOSPHATASE 332 U/L (46-116)
[2022-05-15 19:24] LABS: ALT/SGPT 48 U/L (7.0-40); AST/SGOT 84 U/L (<34); BILIRUBIN,DIRECT 5.5 MG/DL (<0.4); BILIRUBIN,TOTAL 7.4 MG/DL (0.3-1.2)
[2022-05-15 19:33] LABS: HEPATITIS B SURFACE ANTIGEN NEGATIVE (NEGATIVE)
[2022-05-15 19:45] LABS: BASOPHILS 1 % (0-1); LYMPHOCYTES 3 % (16-44); METAMYELOCYTES 1 % (0-0); MONOCYTES 4 % (0-5); NEUTROPHILS 91 % (28-66); PLATELET ESTIMATE DECREASED (NORMAL)
[2022-05-15 19:46] LABS: ANISOCYTOSIS 1+
[2022-05-15 19:53] LABS: HEPATITIS B CORE ANTIBODY IGM NEGATIVE (NEGATIVE)
[2022-05-15 19:54] LABS: HEPATITIS C VIRUS ABY INDEX 0.1 INDEX (<0.8)
[2022-05-15 20:08] LABS: IMMUNOGLOBULIN A 253.2 MG/DL (40-350)
[2022-05-15 20:09] LABS: TOTAL PROTEIN 5.6 G/DL (5.7-8.2)
[2022-05-16] VITALS: BP 143/66
[2022-05-16 04:00] VITALS: BP 131/64
[2022-05-16] MEDS: HEPARIN SOD (PORCINE) 5000UNITS/ML 1ML VIAL/SYRINGE SQ SCH ×3 (05:55→21:08)
[2022-05-16 05:56] LABS: HEMATOCRIT 35.8 % (36.0-47.0); HEMOGLOBIN 11.7 g/dl (12.0-15.5); MEAN CORPUSCULAR HEMOGLOBIN 27.1 pg (27.0-33.0); MEAN CORPUSCULAR HGB CONC 32.7 g/dl (32.0-36.5); MEAN CORPUSCULAR VOLUME 82.9 fl (80.0-96.0); PLATELET COUNT, AUTOMATED 121 10^3/uL (150-450); RED BLOOD COUNT 4.32 10^6/uL (4.00-5.40); WHITE BLOOD COUNT 12.6 10^3/uL (4.0-10.0)
[2022-05-16 06:14] LABS: INR 1.44; PROTHROMBIN TIME 17.9 SECONDS (12.5-14.5)
[2022-05-16 06:24] LABS: MAGNESIUM LEVEL 2.1 MG/DL (1.8-2.4)
[2022-05-16 06:27] LABS: BILIRUBIN,TOTAL 6.2 MG/DL (0.3-1.2)
[2022-05-16 06:28] LABS: BILIRUBIN,DIRECT 4.7 MG/DL (<0.4); CREATININE FOR GFR 1.11 MG/DL (0.55-1.30); GLOMERULAR FILTRATION RATE 49.7 (>32); TOTAL PROTEIN 5.8 G/DL (5.7-8.2)
[2022-05-16 06:30] LABS: POTASSIUM SERUM 4.3 MMOL/L (3.5-5.1)
[2022-05-16 06:40] LABS: ANISOCYTOSIS 1+; ATYPICAL LYMPH 1 % (0-5); BASOPHILS 1 % (0-1); LYMPHOCYTES 4 % (16-44); MONOCYTES 4 % (0-5); NEUTROPHILS 89 % (28-66); PLATELET ESTIMATE DECREASED (NORMAL)
[2022-05-16 08:00] VITALS: BP 140/67
[2022-05-16] MEDS: LACTULOSE 20 GM/30 ML SYRUP UD PO SCH ×3 (09:07→21:08)
[2022-05-16] MEDS: SUCRALFATE 1 GM TAB PO SCH ×4 (09:10→21:08)
[2022-05-16] MEDS: hydroCHLOROthiazide 12.5 MG CAPSULE PO SCH (09:10)
[2022-05-16] MEDS: MAGNESIUM OXIDE 400MG TAB (MAG-OX) PO SCH ×2 (09:10→21:08)
[2022-05-16] MEDS: MIRALAX *UNIT DOSE* 17GM PACKET PO SCH ×2 (09:11→21:08)
[2022-05-16] MEDS: PANTOPRAZOLE 40MG TAB (PROTONIX) PO SCH ×2 (09:11→21:08)
[2022-05-16] MEDS: LOSARTAN 50MG TABLET PO SCH (09:11)
[2022-05-16] MEDS: METAMUCIL (PSYLLIUM) PACKET PO SCH ×2 (09:11→21:08)
[2022-05-16] MEDS: NYSTATIN 100,000 UNITS/GM TOPICAL PWD 15GM TOP SCH ×2 (09:14→21:10)
[2022-05-16] MEDS ORDERED: FUROSEMIDE 40MG/4ML VIAL (J1940) IV ONE (10:50)
[2022-05-16 12:00] VITALS: BP 146/66
[2022-05-16 20:00] VITALS: BP 124/63
[2022-05-17 04:00] VITALS: BP 125/67
[2022-05-17] MEDS: HEPARIN SOD (PORCINE) 5000UNITS/ML 1ML VIAL/SYRINGE SQ SCH ×3 (05:18→21:51)
[2022-05-17 06:04] LABS: BASO # 0.1 10^3/uL (0.0-0.2); BASO % 0.4 % (0.0-1.0); EOS # 0.1 10^3/uL (0.0-0.5); EOS % 0.7 % (0.0-3.0); HEMATOCRIT 36.2 % (36.0-47.0); HEMOGLOBIN 11.8 g/dl (12.0-15.5); LYMPH # 0.7 10^3/uL (1.5-5.0); LYMPH % 5.3 % (24.0-44.0); MEAN CORPUSCULAR HEMOGLOBIN 27.3 pg (27.0-33.0); MEAN CORPUSCULAR HGB CONC 32.6 g/dl (32.0-36.5); MEAN CORPUSCULAR VOLUME 83.8 fl (80.0-96.0); MONO # 0.6 10^3/uL (0.0-0.8); MONO % 4.7 % (2.0-8.0); NEUTROPHILS # 11.4 10^3/uL (1.5-8.5); NEUTROPHILS % 84.6 % (36.0-66.0); PLATELET COUNT, AUTOMATED 150 10^3/uL (150-450); RED BLOOD COUNT 4.32 10^6/uL (4.00-5.40); WHITE BLOOD COUNT 13.5 10^3/uL (4.0-10.0)
[2022-05-17 06:16] LABS: INR 1.43; PROTHROMBIN TIME 17.7 SECONDS (12.5-14.5)
[2022-05-17 06:27] LABS: ALBUMIN 1.7 G/DL (3.2-5.2)
[2022-05-17 06:30] LABS: CALCIUM LEVEL 8.1 MG/DL (8.3-10.6)
[2022-05-17 06:32] LABS: MAGNESIUM LEVEL 1.8 MG/DL (1.8-2.4)
[2022-05-17 06:34] LABS: BILIRUBIN,DIRECT 4.9 MG/DL (<0.4); BILIRUBIN,TOTAL 6.6 MG/DL (0.3-1.2); CREATININE FOR GFR 1.19 MG/DL (0.55-1.30); GLOMERULAR FILTRATION RATE 45.9 (>32)
[2022-05-17 06:40] LABS: TOTAL PROTEIN 5.4 G/DL (5.7-8.2)
[2022-05-17 08:20] VITALS: BP 133/62
[2022-05-17] MEDS: MIRALAX *UNIT DOSE* 17GM PACKET PO SCH ×2 (08:49→21:51)
[2022-05-17] MEDS: METAMUCIL (PSYLLIUM) PACKET PO SCH ×2 (08:49→21:51)
[2022-05-17] MEDS: hydroCHLOROthiazide 12.5 MG CAPSULE PO SCH (08:49)
[2022-05-17] MEDS: SUCRALFATE 1 GM TAB PO SCH ×4 (08:49→21:52)
[2022-05-17] MEDS: PANTOPRAZOLE 40MG TAB (PROTONIX) PO SCH ×2 (08:50→21:52)
[2022-05-17] MEDS: LOSARTAN 50MG TABLET PO SCH (08:50)
[2022-05-17] MEDS: NYSTATIN 100,000 UNITS/GM TOPICAL PWD 15GM TOP SCH ×2 (08:51→21:52)
[2022-05-17] MEDS: LACTULOSE 20 GM/30 ML SYRUP UD PO SCH ×3 (08:51→21:50)
[2022-05-17] MEDS: MAGNESIUM OXIDE 400MG TAB (MAG-OX) PO SCH ×2 (08:51→21:52)
[2022-05-17 12:28] VITALS: BP 126/72
[2022-05-17] MEDS ORDERED: FUROSEMIDE 40MG/4ML VIAL (J1940) IV ONE (14:30)
[2022-05-17 20:00] VITALS: BP 105/57
[2022-05-18 04:00] VITALS: BP 119/56
[2022-05-18] MEDS: HEPARIN SOD (PORCINE) 5000UNITS/ML 1ML VIAL/SYRINGE SQ SCH ×3 (05:15→21:41)
[2022-05-18 05:35] LABS: BASO # 0.1 10^3/uL (0.0-0.2); BASO % 0.5 % (0.0-1.0); EOS # 0.1 10^3/uL (0.0-0.5); EOS % 0.5 % (0.0-3.0); HEMATOCRIT 36.4 % (36.0-47.0); HEMOGLOBIN 11.9 g/dl (12.0-15.5); LYMPH # 0.7 10^3/uL (1.5-5.0); LYMPH % 5.4 % (24.0-44.0); MEAN CORPUSCULAR HEMOGLOBIN 27.2 pg (27.0-33.0); MEAN CORPUSCULAR HGB CONC 32.7 g/dl (32.0-36.5); MEAN CORPUSCULAR VOLUME 83.1 fl (80.0-96.0); MONO # 0.7 10^3/uL (0.0-0.8); MONO % 5.6 % (2.0-8.0); NEUTROPHILS # 11.1 10^3/uL (1.5-8.5); NEUTROPHILS % 85.4 % (36.0-66.0); PLATELET COUNT, AUTOMATED 153 10^3/uL (150-450); RED BLOOD COUNT 4.38 10^6/uL (4.00-5.40)
[2022-05-18 07:24] VITALS: BP 123/60
[2022-05-18] MEDS: MAGNESIUM OXIDE 400MG TAB (MAG-OX) PO SCH ×2 (09:20→21:40)
[2022-05-18] MEDS: LOSARTAN 50MG TABLET PO SCH (09:20)
[2022-05-18] MEDS: LACTULOSE 20 GM/30 ML SYRUP UD PO SCH ×3 (09:20→21:40)
[2022-05-18] MEDS: METAMUCIL (PSYLLIUM) PACKET PO SCH ×2 (09:20→21:40)
[2022-05-18] MEDS: MIRALAX *UNIT DOSE* 17GM PACKET PO SCH ×2 (09:20→21:40)
[2022-05-18] MEDS: NYSTATIN 100,000 UNITS/GM TOPICAL PWD 15GM TOP SCH ×2 (09:21→21:41)
[2022-05-18] MEDS: PANTOPRAZOLE 40MG TAB (PROTONIX) PO SCH ×2 (09:21→21:41)
[2022-05-18] MEDS: hydroCHLOROthiazide 12.5 MG CAPSULE PO SCH (09:21)
[2022-05-18] MEDS: SUCRALFATE 1 GM TAB PO SCH ×4 (09:21→21:40)
[2022-05-18 16:08] LABS: ANCA-ATYPICAL <1:20 titer (Neg:<1:20); ANTI-MITOCHONDRIAL ANTIBODY <20.0 Units (0.0-20.0); ANTINUCLEAR ANTIBODIES DIRECT Negative (Negative); CERULOPLASMIN 39.7 mg/dL (19.0-39.0); CYTOPLASMIC NEUTROP AB ANCA-C <1:20 titer (Neg:<1:20); LIVER-KIDNEY MICROSOMAL ABY <20.1 Units (0.0-20.0); PERINUCLEAR AB ANCA-P <1:20 titer (Neg:<1:20); TISSUE TRANSGLUTAMINASE IgA <2 U/mL (0-3)
[2022-05-18 16:18] VITALS: BP 129/57
[2022-05-18 20:36] VITALS: BP 114/56
[2022-05-19 04:51] VITALS: BP 127/62
[2022-05-19] MEDS: HEPARIN SOD (PORCINE) 5000UNITS/ML 1ML VIAL/SYRINGE SQ SCH ×3 (05:13→21:12)
[2022-05-19 08:00] VITALS: BP 114/56
[2022-05-19] MEDS: hydroCHLOROthiazide 12.5 MG CAPSULE PO SCH (08:54)
[2022-05-19] MEDS: LOSARTAN 50MG TABLET PO SCH (08:54)
[2022-05-19] MEDS: PANTOPRAZOLE 40MG TAB (PROTONIX) PO SCH ×2 (08:54→21:12)
[2022-05-19] MEDS: MAGNESIUM OXIDE 400MG TAB (MAG-OX) PO SCH ×2 (08:54→21:12)
[2022-05-19] MEDS: SUCRALFATE 1 GM TAB PO SCH ×4 (08:54→21:11)
[2022-05-19] MEDS: METAMUCIL (PSYLLIUM) PACKET PO SCH ×2 (08:54→21:11)
[2022-05-19] MEDS: MIRALAX *UNIT DOSE* 17GM PACKET PO SCH (08:55)
[2022-05-19] MEDS: NYSTATIN 100,000 UNITS/GM TOPICAL PWD 15GM TOP SCH ×2 (08:55→21:13)
[2022-05-19] MEDS: LACTULOSE 20 GM/30 ML SYRUP UD PO SCH ×3 (08:55→21:11)
[2022-05-19 12:00] VITALS: BP 131/62
[2022-05-19 20:00] VITALS: BP 114/56
[2022-05-20 04:00] VITALS: BP 134/64
[2022-05-20 05:46] LABS: BASO % 0.3 % (0.0-1.0); EOS % 0.2 % (0.0-3.0); HEMATOCRIT 35.3 % (36.0-47.0); HEMOGLOBIN 11.4 g/dl (12.0-15.5); LYMPH # 0.7 10^3/uL (1.5-5.0); LYMPH % 5.5 % (24.0-44.0); MEAN CORPUSCULAR HEMOGLOBIN 27.4 pg (27.0-33.0); MEAN CORPUSCULAR HGB CONC 32.3 g/dl (32.0-36.5); MEAN CORPUSCULAR VOLUME 84.9 fl (80.0-96.0); MONO # 0.8 10^3/uL (0.0-0.8); MONO % 5.9 % (2.0-8.0); NEUTROPHILS # 11.1 10^3/uL (1.5-8.5); PLATELET COUNT, AUTOMATED 239 10^3/uL (150-450); RED BLOOD COUNT 4.16 10^6/uL (4.00-5.40); WHITE BLOOD COUNT 12.8 10^3/uL (4.0-10.0)
[2022-05-20 06:20] LABS: ALBUMIN 1.6 G/DL (3.2-5.2); BILIRUBIN,TOTAL 4.5 MG/DL (0.3-1.2); CALCIUM LEVEL 8.1 MG/DL (8.3-10.6); CREATININE FOR GFR 1.2 MG/DL (0.55-1.30); GLOMERULAR FILTRATION RATE 45.5 (>32); POTASSIUM SERUM 3.3 MMOL/L (3.5-5.1); TOTAL PROTEIN 5.7 G/DL (5.7-8.2)
[2022-05-20] MEDS ORDERED: POTASSIUM CHLORIDE 10MEQ SR TABLET PO ONE (07:30)
[2022-05-20 07:41] VITALS: BP 108/53
[2022-05-20] MEDS: LACTULOSE 20 GM/30 ML SYRUP UD PO SCH ×3 (08:51→20:34)
[2022-05-20] MEDS: HEPARIN SOD (PORCINE) 5000UNITS/ML 1ML VIAL/SYRINGE SQ SCH ×2 (08:51→20:50)
[2022-05-20] MEDS: FUROSEMIDE 40 MG TAB PO SCH (08:52)
[2022-05-20] MEDS: METAMUCIL (PSYLLIUM) PACKET PO SCH ×2 (08:52→20:34)
[2022-05-20] MEDS: LOSARTAN 50MG TABLET PO SCH (08:52)
[2022-05-20] MEDS: SUCRALFATE 1 GM TAB PO SCH ×4 (08:52→20:50)
[2022-05-20] MEDS: MAGNESIUM OXIDE 400MG TAB (MAG-OX) PO SCH ×2 (08:52→20:51)
[2022-05-20] MEDS: MIRALAX *UNIT DOSE* 17GM PACKET PO SCH (08:52)
[2022-05-20] MEDS: PANTOPRAZOLE 40MG TAB (PROTONIX) PO SCH ×2 (08:52→20:51)
[2022-05-20] MEDS: SPIRONOLACTONE 25 MG TAB PO SCH (08:53)
[2022-05-20] MEDS: NYSTATIN 100,000 UNITS/GM TOPICAL PWD 15GM TOP SCH ×2 (08:53→20:51)
[2022-05-20 20:00] VITALS: BP 133/62
[2022-05-21 05:47] LABS: BASO % 0.3 % (0.0-1.0); EOS % 0.3 % (0.0-3.0); HEMATOCRIT 36.4 % (36.0-47.0); HEMOGLOBIN 11.6 g/dl (12.0-15.5); LYMPH # 0.8 10^3/uL (1.5-5.0); LYMPH % 7.3 % (24.0-44.0); MEAN CORPUSCULAR HEMOGLOBIN 27.4 pg (27.0-33.0); MEAN CORPUSCULAR HGB CONC 31.9 g/dl (32.0-36.5); MEAN CORPUSCULAR VOLUME 85.8 fl (80.0-96.0); MONO # 0.7 10^3/uL (0.0-0.8); MONO % 6.7 % (2.0-8.0); NEUTROPHILS # 8.9 10^3/uL (1.5-8.5); NEUTROPHILS % 84.5 % (36.0-66.0); PLATELET COUNT, AUTOMATED 268 10^3/uL (150-450); RED BLOOD COUNT 4.24 10^6/uL (4.00-5.40); WHITE BLOOD COUNT 10.5 10^3/uL (4.0-10.0)
[2022-05-21 06:39] LABS: CALCIUM LEVEL 8.6 MG/DL (8.3-10.6); CREATININE FOR GFR 1.27 MG/DL (0.55-1.30); GLOMERULAR FILTRATION RATE 42.6 (>32); POTASSIUM SERUM 3.4 MMOL/L (3.5-5.1); TOTAL PROTEIN 6.5 G/DL (5.7-8.2)
[2022-05-21 07:31] VITALS: BP 105/57
[2022-05-21] MEDS ORDERED: POTASSIUM CHLORIDE 10MEQ SR TABLET PO ONE (07:55)
[2022-05-21] MEDS: LOSARTAN 50MG TABLET PO SCH (09:00)
[2022-05-21] MEDS: MIRALAX *UNIT DOSE* 17GM PACKET PO SCH (09:00)
[2022-05-21] MEDS: METAMUCIL (PSYLLIUM) PACKET PO SCH ×2 (09:00→20:39)
[2022-05-21] MEDS: FUROSEMIDE 40 MG TAB PO SCH (09:16)
[2022-05-21] MEDS: MAGNESIUM OXIDE 400MG TAB (MAG-OX) PO SCH ×2 (09:16→20:44)
[2022-05-21] MEDS: PANTOPRAZOLE 40MG TAB (PROTONIX) PO SCH ×2 (09:16→20:44)
[2022-05-21] MEDS: SUCRALFATE 1 GM TAB PO SCH ×4 (09:17→20:44)
[2022-05-21] MEDS: LACTULOSE 20 GM/30 ML SYRUP UD PO SCH ×3 (09:17→20:43)
[2022-05-21] MEDS: SPIRONOLACTONE 25 MG TAB PO SCH (09:17)
[2022-05-21] MEDS: HEPARIN SOD (PORCINE) 5000UNITS/ML 1ML VIAL/SYRINGE SQ SCH ×2 (09:17→20:43)
[2022-05-21] MEDS: NYSTATIN 100,000 UNITS/GM TOPICAL PWD 15GM TOP SCH ×2 (09:18→20:44)
[2022-05-22 04:30] VITALS: BP 115/55
[2022-05-22 05:25] LABS: BASO # 0.1 10^3/uL (0.0-0.2); BASO % 0.5 % (0.0-1.0); EOS % 0.2 % (0.0-3.0); HEMATOCRIT 34.4 % (36.0-47.0); HEMOGLOBIN 10.9 g/dl (12.0-15.5); LYMPH # 0.8 10^3/uL (1.5-5.0); LYMPH % 8.7 % (24.0-44.0); MEAN CORPUSCULAR HEMOGLOBIN 27.6 pg (27.0-33.0); MEAN CORPUSCULAR HGB CONC 31.7 g/dl (32.0-36.5); MEAN CORPUSCULAR VOLUME 87.1 fl (80.0-96.0); MONO # 0.7 10^3/uL (0.0-0.8); NEUTROPHILS # 7.5 10^3/uL (1.5-8.5); NEUTROPHILS % 81.7 % (36.0-66.0); PLATELET COUNT, AUTOMATED 317 10^3/uL (150-450); RED BLOOD COUNT 3.95 10^6/uL (4.00-5.40); WHITE BLOOD COUNT 9.1 10^3/uL (4.0-10.0)
[2022-05-22 06:01] LABS: ALBUMIN 1.7 G/DL (3.2-5.2); BILIRUBIN,TOTAL 3.5 MG/DL (0.3-1.2); CALCIUM LEVEL 8.4 MG/DL (8.3-10.6); CREATININE FOR GFR 1.25 MG/DL (0.55-1.30); GLOMERULAR FILTRATION RATE 43.4 (>32); POTASSIUM SERUM 4.1 MMOL/L (3.5-5.1)
[2022-05-22 08:00] VITALS: BP 108/52
[2022-05-22] MEDS: HEPARIN SOD (PORCINE) 5000UNITS/ML 1ML VIAL/SYRINGE SQ SCH ×2 (08:54→20:30)
[2022-05-22] MEDS: MIRALAX *UNIT DOSE* 17GM PACKET PO SCH (09:00)
[2022-05-22] MEDS: LACTULOSE 20 GM/30 ML SYRUP UD PO SCH ×3 (09:00→20:30)
[2022-05-22] MEDS: METAMUCIL (PSYLLIUM) PACKET PO SCH ×2 (09:00→20:30)
[2022-05-22] MEDS: PANTOPRAZOLE 40MG TAB (PROTONIX) PO SCH ×2 (09:01→20:30)
[2022-05-22] MEDS: FUROSEMIDE 40 MG TAB PO SCH (09:01)
[2022-05-22] MEDS: SUCRALFATE 1 GM TAB PO SCH ×4 (09:01→20:31)
[2022-05-22] MEDS: MAGNESIUM OXIDE 400MG TAB (MAG-OX) PO SCH ×2 (09:01→20:30)
[2022-05-22] MEDS: SPIRONOLACTONE 25 MG TAB PO SCH (09:01)
[2022-05-22 09:02] VITALS: BP 126/59
[2022-05-22] MEDS: LOSARTAN 50MG TABLET PO SCH (09:02)
[2022-05-22] MEDS: NYSTATIN 100,000 UNITS/GM TOPICAL PWD 15GM TOP SCH ×2 (09:04→20:31)
[2022-05-22] MEDS ORDERED: traMADol 50 MG TAB PO PRN (09:55)
[2022-05-22 16:00] VITALS: BP 113/62
[2022-05-22 21:00] VITALS: BP 112/61
[2022-05-23 05:48] VITALS: BP 113/60
[2022-05-23 06:11] LABS: BASO % 0.5 % (0.0-1.0); EOS % 0.5 % (0.0-3.0); HEMATOCRIT 33.8 % (36.0-47.0); HEMOGLOBIN 10.5 g/dl (12.0-15.5); LYMPH # 0.7 10^3/uL (1.5-5.0); LYMPH % 8.7 % (24.0-44.0); MEAN CORPUSCULAR HEMOGLOBIN 27.3 pg (27.0-33.0); MEAN CORPUSCULAR HGB CONC 31.1 g/dl (32.0-36.5); MEAN CORPUSCULAR VOLUME 87.8 fl (80.0-96.0); MONO # 0.7 10^3/uL (0.0-0.8); MONO % 9.3 % (2.0-8.0); NEUTROPHILS # 6.4 10^3/uL (1.5-8.5); NEUTROPHILS % 80.2 % (36.0-66.0); PLATELET COUNT, AUTOMATED 300 10^3/uL (150-450); RED BLOOD COUNT 3.85 10^6/uL (4.00-5.40); WHITE BLOOD COUNT 7.9 10^3/uL (4.0-10.0)
[2022-05-23 06:45] LABS: ALBUMIN 1.6 G/DL (3.2-5.2); BILIRUBIN,TOTAL 2.9 MG/DL (0.3-1.2); CALCIUM LEVEL 8.2 MG/DL (8.3-10.6); CREATININE FOR GFR 1.18 MG/DL (0.55-1.30); GLOMERULAR FILTRATION RATE 46.3 (>32); POTASSIUM SERUM 4.1 MMOL/L (3.5-5.1)
[2022-05-23] MEDS: LOSARTAN 50MG TABLET PO SCH (08:30)
[2022-05-23] MEDS: MIRALAX *UNIT DOSE* 17GM PACKET PO SCH (08:40)
[2022-05-23] MEDS: SUCRALFATE 1 GM TAB PO SCH ×2 (08:40→12:57)
[2022-05-23] MEDS: MAGNESIUM OXIDE 400MG TAB (MAG-OX) PO SCH (08:40)
[2022-05-23] MEDS: LACTULOSE 20 GM/30 ML SYRUP UD PO SCH (08:40)
[2022-05-23] MEDS: METAMUCIL (PSYLLIUM) PACKET PO SCH (08:40)
[2022-05-23] MEDS: PANTOPRAZOLE 40MG TAB (PROTONIX) PO SCH (08:40)
[2022-05-23] MEDS: SPIRONOLACTONE 25 MG TAB PO SCH (08:40)
[2022-05-23] MEDS: NYSTATIN 100,000 UNITS/GM TOPICAL PWD 15GM TOP SCH (08:41)
[2022-05-23] MEDS: HEPARIN SOD (PORCINE) 5000UNITS/ML 1ML VIAL/SYRINGE SQ SCH (08:41)
[2022-05-23] MEDS: FUROSEMIDE 40 MG TAB PO SCH (08:44)
[2022-05-23] MEDS ORDERED: SENN18TA PO (11:32)
[2022-05-23] MEDS ORDERED: PANT40TA29 PO (11:32)
[2022-05-23] MEDS ORDERED: FURO40TA2 PO (11:32)
[2022-05-23] MEDS ORDERED: ALDA25TA2 PO (11:32)
[2022-05-23] MEDS ORDERED: MAGN400T2 PO (11:32)
[2022-05-23] MEDS ORDERED: SUCR1TA PO (11:32)
[2022-05-23] MEDS ORDERED: COZA50TA PO (11:32)
[2022-05-23] MEDS ORDERED: LACT20EL PO (11:32)
== END 2022-05-23 14:20 | DRG 253 ==
LOC: EDBD 11:13 → M ED 11:13 → M ED INP 15:48 → M PCU 17:12 → M MSPAV 05-22 15:56
PROVIDERS: ADMIT Student in an Organized Health Care Education/Training Program; ATTEND Family Medicine
PROC: 30233N1 Transfusion of Nonautologous Red Blood Cells into Peripheral Vein, Percutaneous Approach (ICD-10-PCS; principal; 2022-05-10)
DX: K92.2 Gastrointestinal hemorrhage, unspecified (principal); G93.41 Metabolic encephalopathy; I50.33 Acute on chronic diastolic (congestive) heart failure; N17.9 Acute kidney failure, unspecified; A41.9 Sepsis, unspecified organism; N18.30 Chronic kidney disease, stage 3 unspecified; K80.00 Calculus of gallbladder with acute cholecystitis without obstruction; E87.20 Acidosis, unspecified; D68.32 Hemorrhagic disorder due to extrinsic circulating anticoagulants; I13.0 Hypertensive heart and chronic kidney disease with heart failure and stage 1 through stage 4 chronic kidney disease, or unspecified chronic kidney disease; D69.6 Thrombocytopenia, unspecified; I27.20 Pulmonary hypertension, unspecified; I48.91 Unspecified atrial fibrillation; I48.92 Unspecified atrial flutter; E83.42 Hypomagnesemia; B96.1 Klebsiella pneumoniae [K. pneumoniae] as the cause of diseases classified elsewhere; K74.60 Unspecified cirrhosis of liver; K75.81 Nonalcoholic steatohepatitis (NASH); N39.0 Urinary tract infection, site not specified; E66.3 Overweight; E80.6 Other disorders of bilirubin metabolism; K29.50 Unspecified chronic gastritis without bleeding; K59.00 Constipation, unspecified; M10.9 Gout, unspecified; R41.82 Altered mental status, unspecified; R74.01 Elevation of levels of liver transaminase levels; R94.5 Abnormal results of liver function studies; Z79.899 Other long term (current) drug therapy; D62 Acute posthemorrhagic anemia

== ENCOUNTER → 2022-05-23 | Outpatient (REF) | payer MEDICARE, OTHER ==
[~2022-05-23] MED LIST changes: +ALDA25TA2 PO; +ALEV220T22 PO; +BISA10SU27 PR; +COZA50TA PO; +DULO30CA9 PO; +FLEEENE12 PR; +FURO40TA2 PO; +JUVE1POW PO; +LACT20EL PO; +LIDO1PAD13 TOP; +LOSA25TA13 PO; +MAGN400T2 PO; +MOM30SS2 PO; +PANT40TA29 PO; +SENN18TA PO; +SENN8.6T28 PO; +SUCR1TA PO; +TARTCAP PO; +THERTAB19 PO; +VITMTA PO
== END ==
LOC: SKLAB3 16:00
PROVIDERS: ATTEND Internal Medicine
DX: R33.9 Retention of urine, unspecified (principal)

== ENCOUNTER → 2022-05-25 | Outpatient (REF) ==
[~2022-05-25] MED LIST changes: -BISA10SU27 PR; -DULO30CA9 PO; -FLEEENE12 PR; -JUVE1POW PO; -LIDO1PAD13 TOP; -LOSA25TA13 PO; -MOM30SS2 PO; -SENN8.6T28 PO; -THERTAB19 PO
[2022-05-25 08:03] LABS: HEMATOCRIT 35.2 % (36.0-47.0); HEMOGLOBIN 10.9 g/dl (12.0-15.5); MEAN CORPUSCULAR HEMOGLOBIN 27.2 pg (27.0-33.0); MEAN CORPUSCULAR VOLUME 87.8 fl (80.0-96.0); PLATELET COUNT, AUTOMATED 314 10^3/uL (150-450); RED BLOOD COUNT 4.01 10^6/uL (4.00-5.40); WHITE BLOOD COUNT 7.1 10^3/uL (4.0-10.0)
[2022-05-25 08:18] LABS: ALBUMIN 1.8 G/DL (3.2-5.2); BILIRUBIN,TOTAL 3.1 MG/DL (0.3-1.2); CALCIUM LEVEL 8.6 MG/DL (8.3-10.6); CREATININE FOR GFR 1.17 MG/DL (0.55-1.30); GLOMERULAR FILTRATION RATE 46.8 (>32); POTASSIUM SERUM 3.7 MMOL/L (3.5-5.1); TOTAL PROTEIN 6.2 G/DL (5.7-8.2)
== END ==
LOC: SKLAB3 07:06
PROVIDERS: ATTEND Nurse Practitioner Family
DX: I50.9 Heart failure, unspecified (principal); Z87.19 Personal history of other diseases of the digestive system

== ENCOUNTER → 2022-06-06 | Outpatient (REF) | payer MEDICARE, OTHER ==
[~2022-06-06] MED LIST changes: +BISA10SU27 PR; +DULO30CA9 PO; +FLEEENE12 PR; +JUVE1POW PO; +LIDO1PAD13 TOP; +LOSA25TA13 PO; +MOM30SS2 PO; +SENN8.6T28 PO; +THERTAB19 PO
== END ==
LOC: SKLAB3 10:25
PROVIDERS: ATTEND Nurse Practitioner Family
DX: M79.609 Pain in unspecified limb (principal); Z53.8 Procedure and treatment not carried out for other reasons

== ENCOUNTER → 2022-06-06 | Outpatient (CLI) | payer MEDICARE, OTHER | LOC: M RAD 13:54 | PROVIDERS: ATTEND Internal Medicine | DX: M25.551 Pain in right hip (principal); M16.11 Unilateral primary osteoarthritis, right hip; M25.561 Pain in right knee; M25.461 Effusion, right knee; M17.11 Unilateral primary osteoarthritis, right knee ==

== ENCOUNTER 2022-06-14 15:30 | Inpatient (IN) | payer OTHER, MEDICARE ==
[~2022-06-14] VITALS: Ht 162.6 cm; Wt 83.7 kg
[~2022-06-14 15:30] MED LIST changes: -BISA10SU27 PR; -DULO30CA9 PO; -FLEEENE12 PR; -JUVE1POW PO; -LIDO1PAD13 TOP; -LOSA25TA13 PO; -MOM30SS2 PO; -SENN8.6T28 PO; -THERTAB19 PO
[2022-06-14] MEDS ORDERED: NS 500 ML IV ONE (15:50)
[2022-06-14] MEDS ORDERED: NS 1,000 ML IV ONE (17:00)
[2022-06-14] MEDS: NS 1,000 ML IV SCH (18:18)
[2022-06-14] MEDS ORDERED: MOM30SS2 PO (19:20)
[2022-06-14] MEDS ORDERED: FLEEENE12 PR (19:20)
[2022-06-14] MEDS ORDERED: LIDO1PAD13 TOP (19:20)
[2022-06-14] MEDS ORDERED: DULO30CA9 PO (19:20)
[2022-06-14] MEDS ORDERED: FURO40TA2 PO (19:20)
[2022-06-14] MEDS ORDERED: JUVE1POW PO (19:20)
[2022-06-14] MEDS ORDERED: MAGN400T2 PO (19:20)
[2022-06-14] MEDS ORDERED: THERTAB19 PO (19:20)
[2022-06-14] MEDS ORDERED: SENN8.6T28 PO (19:20)
[2022-06-14] MEDS ORDERED: LOSA25TA13 PO (19:20)
[2022-06-14] MEDS ORDERED: BISA10SU27 PR (19:20)
[2022-06-14] MEDS ORDERED: HOME MED LIST COMPLETE! XX SCH (19:25)
[2022-06-14 19:42] LABS: INR 1.22; PROTHROMBIN TIME 15.7 SECONDS (12.5-14.5)
[2022-06-14 19:47] LABS: CALCIUM LEVEL 8.2 MG/DL (8.3-10.6); CREATININE FOR GFR 2.66 MG/DL (0.55-1.30); GLOMERULAR FILTRATION RATE 18.1 (>32); POTASSIUM SERUM 3.8 MMOL/L (3.5-5.1)
[2022-06-14 19:55] LABS: RSV AMPLIFICATION NEGATIVE (NEGATIVE)
[2022-06-14] MEDS: DULoxetine 30MG CAPSULE (CYMBALTA) PO SCH (21:25)
[2022-06-14] MEDS: SUCRALFATE 1 GM TAB PO SCH (21:25)
[2022-06-14] MEDS: PANTOPRAZOLE 40MG TAB (PROTONIX) PO SCH (21:25)
[2022-06-14] MEDS: LACTULOSE 20GM/30ML SYRUP UDC PO SCH (21:26)
[2022-06-15] MEDS: NS 1,000 ML IV SCH ×2 (05:15→14:25)
[2022-06-15 06:45] LABS: HEMATOCRIT 32.9 % (36.0-47.0); MEAN CORPUSCULAR HEMOGLOBIN 27.5 pg (27.0-33.0); MEAN CORPUSCULAR HGB CONC 32.2 g/dl (32.0-36.5); MEAN CORPUSCULAR VOLUME 85.5 fl (80.0-96.0); PLATELET COUNT, AUTOMATED 129 10^3/uL (150-450); RED BLOOD COUNT 3.85 10^6/uL (4.00-5.40); WHITE BLOOD COUNT 8.7 10^3/uL (4.0-10.0)
[2022-06-15 06:48] LABS: HEMOGLOBIN 10.6 g/dl (12.0-15.5)
[2022-06-15] MEDS ORDERED: HYDROCORTISONE 100 MG/2 ML VIAL (J1720 PER 1) IV ONE (07:00)
[2022-06-15 07:18] LABS: BILIRUBIN,TOTAL 1.4 MG/DL (0.3-1.2); CALCIUM LEVEL 7.7 MG/DL (8.3-10.6); CREATININE FOR GFR 2.39 MG/DL (0.55-1.30); GLOMERULAR FILTRATION RATE 20.5 (>32); POTASSIUM SERUM 3.6 MMOL/L (3.5-5.1); TOTAL PROTEIN 5.7 G/DL (5.7-8.2)
[2022-06-15] MEDS: SUCRALFATE 1 GM TAB PO SCH ×2 (08:25→20:33)
[2022-06-15] MEDS: PANTOPRAZOLE 40MG TAB (PROTONIX) PO SCH ×2 (08:25→20:33)
[2022-06-15] MEDS: LACTULOSE 20GM/30ML SYRUP UDC PO SCH ×3 (08:25→20:34)
[2022-06-15] MEDS: SANTYL OINT 30GM TOP SCH (09:00)
[2022-06-15] MEDS: DIMETHICONE 2% OINTMENT(VANICREAM) 70GM TUBE TOP SCH (09:00)
[2022-06-15 10:14] LABS: HEMATOCRIT 34.9 % (36.0-47.0); HEMOGLOBIN 10.9 g/dl (12.0-15.5)
[2022-06-15] MEDS: cefTRIAXone SOD 1 GM in D5W MINI-BAG PLUS 50 ML IV SCH (11:37)
[2022-06-15] MEDS: HEPARIN SOD (PORCINE) 5000UNITS/ML 1ML VIAL/SYRINGE SQ SCH ×2 (11:39→20:34)
[2022-06-15 17:50] VITALS: BP 90/56
[2022-06-15] MEDS: DULoxetine 30MG CAPSULE (CYMBALTA) PO SCH (20:34)
[2022-06-15 20:41] VITALS: BP 102/69
[2022-06-16] MEDS: NS 1,000 ML IV SCH ×3 (01:30→23:10)
[2022-06-16 05:52] VITALS: BP 90/44
[2022-06-16 06:36] LABS: BASO % 0.2 % (0.0-1.0); EOS % 0.3 % (0.0-3.0); HEMATOCRIT 32.2 % (36.0-47.0); HEMOGLOBIN 10.1 g/dl (12.0-15.5); LYMPH # 1.1 10^3/uL (1.5-5.0); LYMPH % 17.9 % (24.0-44.0); MEAN CORPUSCULAR HEMOGLOBIN 26.9 pg (27.0-33.0); MEAN CORPUSCULAR HGB CONC 31.4 g/dl (32.0-36.5); MEAN CORPUSCULAR VOLUME 85.9 fl (80.0-96.0); MONO # 0.4 10^3/uL (0.0-0.8); MONO % 6.7 % (2.0-8.0); NEUTROPHILS # 4.7 10^3/uL (1.5-8.5); NEUTROPHILS % 74.6 % (36.0-66.0); PLATELET COUNT, AUTOMATED 132 10^3/uL (150-450); RED BLOOD COUNT 3.75 10^6/uL (4.00-5.40); WHITE BLOOD COUNT 6.3 10^3/uL (4.0-10.0)
[2022-06-16 06:40] VITALS: BP 102/54
[2022-06-16 07:07] LABS: ALBUMIN 2.1 G/DL (3.2-5.2); ALKALINE PHOSPHATASE 68 U/L (46-116); ALT/SGPT < 9 U/L (7.0-40); AST/SGOT 26 U/L (<34); BLOOD UREA NITROGEN 58 MG/DL (9-23); CALCIUM LEVEL 7.8 MG/DL (8.3-10.6); CARBON DIOXIDE LEVEL 25 MMOL/L (20-31); CHLORIDE LEVEL 105 MMOL/L (98-107); CREATININE FOR GFR 1.66 MG/DL (0.55-1.30); GLOMERULAR FILTRATION RATE 31.3 (>32); GLUCOSE, FASTING 69 MG/DL (74-106); POTASSIUM SERUM 3.1 MMOL/L (3.5-5.1); SODIUM LEVEL 140 MMOL/L (136-145); TOTAL PROTEIN 5.9 G/DL (5.7-8.2)
[2022-06-16] MEDS ORDERED: POTASSIUM CHLORIDE 10MEQ SR TABLET PO ONE (07:15)
[2022-06-16] MEDS ORDERED: GLUCOSE 4GM CHEW TABLET PO PRN (07:20)
[2022-06-16] MEDS ORDERED: GLUCAGON INJ 1MG VIAL SC PRN (07:20)
[2022-06-16] MEDS ORDERED: DEXTROSE 50% 50ML SYRINGE IV PRN (07:20)
[2022-06-16 07:57] LABS: MAGNESIUM LEVEL 2.3 MG/DL (1.8-2.4)
[2022-06-16] MEDS: SUCRALFATE 1 GM TAB PO SCH ×2 (09:57→21:14)
[2022-06-16] MEDS: PANTOPRAZOLE 40MG TAB (PROTONIX) PO SCH ×2 (09:57→21:14)
[2022-06-16] MEDS: LACTULOSE 20GM/30ML SYRUP UDC PO SCH ×3 (09:58→21:14)
[2022-06-16] MEDS ORDERED: PREVNAR-20 VACCINE 0.5ML SYRINGE IM.IMMUN ONE (10:00)
[2022-06-16] MEDS: cefTRIAXone SOD 1 GM in D5W MINI-BAG PLUS 50 ML IV SCH (10:04)
[2022-06-16] MEDS: HEPARIN SOD (PORCINE) 5000UNITS/ML 1ML VIAL/SYRINGE SQ SCH ×2 (10:08→21:14)
[2022-06-16] MEDS: SANTYL OINT 30GM TOP SCH (18:50)
[2022-06-16] MEDS: DIMETHICONE 2% OINTMENT(VANICREAM) 70GM TUBE TOP SCH (18:50)
[2022-06-16] MEDS: DULoxetine 30MG CAPSULE (CYMBALTA) PO SCH (21:14)
[2022-06-16 22:00] VITALS: BP 104/71
[2022-06-17 06:00] VITALS: BP 106/64
[2022-06-17 06:42] LABS: BASO % 0.5 % (0.0-1.0); EOS # 0.1 10^3/uL (0.0-0.5); EOS % 1.1 % (0.0-3.0); HEMOGLOBIN 10.3 g/dl (12.0-15.5); LYMPH # 0.9 10^3/uL (1.5-5.0); LYMPH % 14.9 % (24.0-44.0); MEAN CORPUSCULAR HGB CONC 31.2 g/dl (32.0-36.5); MEAN CORPUSCULAR VOLUME 86.4 fl (80.0-96.0); MONO # 0.4 10^3/uL (0.0-0.8); MONO % 6.5 % (2.0-8.0); NEUTROPHILS # 4.4 10^3/uL (1.5-8.5); NEUTROPHILS % 76.5 % (36.0-66.0); PLATELET COUNT, AUTOMATED 117 10^3/uL (150-450); RED BLOOD COUNT 3.82 10^6/uL (4.00-5.40); WHITE BLOOD COUNT 5.7 10^3/uL (4.0-10.0)
[2022-06-17 07:04] LABS: C REACTIVE PROTEIN QUANTITATIV 4.7 MG/DL (<1.0)
[2022-06-17 07:06] LABS: ALBUMIN 2.2 G/DL (3.2-5.2); CALCIUM LEVEL 7.8 MG/DL (8.3-10.6); CREATININE FOR GFR 1.19 MG/DL (0.55-1.30); GLOMERULAR FILTRATION RATE 45.9 (>32); POTASSIUM SERUM 3.7 MMOL/L (3.5-5.1)
[2022-06-17] MEDS: DIMETHICONE 2% OINTMENT(VANICREAM) 70GM TUBE TOP SCH (09:00)
[2022-06-17] MEDS: SUCRALFATE 1 GM TAB PO SCH ×2 (09:14→21:02)
[2022-06-17] MEDS: HEPARIN SOD (PORCINE) 5000UNITS/ML 1ML VIAL/SYRINGE SQ SCH ×3 (09:14→21:02)
[2022-06-17] MEDS: PANTOPRAZOLE 40MG TAB (PROTONIX) PO SCH ×2 (09:14→21:02)
[2022-06-17] MEDS: LACTULOSE 20GM/30ML SYRUP UDC PO SCH ×3 (09:14→21:02)
[2022-06-17] MEDS: SANTYL OINT 30GM TOP SCH (09:15)
[2022-06-17] MEDS: CEFDINIR 300 MG CAP (OMNICEF) PO SCH ×2 (09:58→21:02)
[2022-06-17 14:15] VITALS: BP 101/62
[2022-06-17] MEDS ORDERED: NYSTATIN 100,000 UNITS/GM TOPICAL PWD 15GM TOP PRN (16:00)
[2022-06-17] MEDS: DULoxetine 30MG CAPSULE (CYMBALTA) PO SCH (21:02)
[2022-06-17 22:00] VITALS: BP 133/63
[2022-06-18 06:00] VITALS: BP 133/65
[2022-06-18 06:27] LABS: BASO % 0.4 % (0.0-1.0); EOS # 0.1 10^3/uL (0.0-0.5); EOS % 1.5 % (0.0-3.0); HEMATOCRIT 33.5 % (36.0-47.0); HEMOGLOBIN 10.3 g/dl (12.0-15.5); LYMPH % 18.2 % (24.0-44.0); MEAN CORPUSCULAR HEMOGLOBIN 26.6 pg (27.0-33.0); MEAN CORPUSCULAR HGB CONC 30.7 g/dl (32.0-36.5); MEAN CORPUSCULAR VOLUME 86.6 fl (80.0-96.0); MONO # 0.4 10^3/uL (0.0-0.8); NEUTROPHILS % 72.3 % (36.0-66.0); PLATELET COUNT, AUTOMATED 119 10^3/uL (150-450); RED BLOOD COUNT 3.87 10^6/uL (4.00-5.40); WHITE BLOOD COUNT 5.5 10^3/uL (4.0-10.0)
[2022-06-18 06:51] LABS: BILIRUBIN,TOTAL 1.2 MG/DL (0.3-1.2); CALCIUM LEVEL 8.1 MG/DL (8.3-10.6); CREATININE FOR GFR 1.02 MG/DL (0.55-1.30); GLOMERULAR FILTRATION RATE 54.8 (>32); POTASSIUM SERUM 3.9 MMOL/L (3.5-5.1); TOTAL PROTEIN 5.6 G/DL (5.7-8.2)
[2022-06-18] MEDS: HEPARIN SOD (PORCINE) 5000UNITS/ML 1ML VIAL/SYRINGE SQ SCH ×2 (08:51→21:58)
[2022-06-18] MEDS: LACTULOSE 20GM/30ML SYRUP UDC PO SCH ×3 (08:53→21:58)
[2022-06-18] MEDS: SUCRALFATE 1 GM TAB PO SCH ×2 (08:53→21:57)
[2022-06-18] MEDS: CEFDINIR 300 MG CAP (OMNICEF) PO SCH ×2 (08:53→21:58)
[2022-06-18] MEDS: PANTOPRAZOLE 40MG TAB (PROTONIX) PO SCH ×2 (08:53→21:57)
[2022-06-18] MEDS: SANTYL OINT 30GM TOP SCH (08:54)
[2022-06-18] MEDS: DIMETHICONE 2% OINTMENT(VANICREAM) 70GM TUBE TOP SCH (09:00)
[2022-06-18 14:00] VITALS: BP 121/67
[2022-06-18] MEDS: DULoxetine 30MG CAPSULE (CYMBALTA) PO SCH (21:58)
[2022-06-18 22:00] VITALS: BP 118/67
[2022-06-19 05:52] LABS: BASO % 0.5 % (0.0-1.0); EOS # 0.1 10^3/uL (0.0-0.5); EOS % 1.1 % (0.0-3.0); HEMATOCRIT 31.5 % (36.0-47.0); LYMPH # 1.3 10^3/uL (1.5-5.0); LYMPH % 20.5 % (24.0-44.0); MEAN CORPUSCULAR HEMOGLOBIN 27.2 pg (27.0-33.0); MEAN CORPUSCULAR HGB CONC 31.7 g/dl (32.0-36.5); MEAN CORPUSCULAR VOLUME 85.8 fl (80.0-96.0); MONO # 0.5 10^3/uL (0.0-0.8); NEUTROPHILS # 4.4 10^3/uL (1.5-8.5); NEUTROPHILS % 69.1 % (36.0-66.0); PLATELET COUNT, AUTOMATED 111 10^3/uL (150-450); RED BLOOD COUNT 3.67 10^6/uL (4.00-5.40); WHITE BLOOD COUNT 6.4 10^3/uL (4.0-10.0)
[2022-06-19 06:00] VITALS: BP 125/71
[2022-06-19 06:19] LABS: ALBUMIN 1.9 G/DL (3.2-5.2); ALKALINE PHOSPHATASE 82 U/L (46-116); ALT/SGPT 13 U/L (7.0-40); AST/SGOT 22 U/L (<34); BILIRUBIN,TOTAL 1.1 MG/DL (0.3-1.2); BLOOD UREA NITROGEN 24 MG/DL (9-23); CALCIUM LEVEL 8.1 MG/DL (8.3-10.6); CARBON DIOXIDE LEVEL 27 MMOL/L (20-31); CHLORIDE LEVEL 108 MMOL/L (98-107); CREATININE FOR GFR 0.92 MG/DL (0.55-1.30); GLOMERULAR FILTRATION RATE > 60.0 (>32); GLUCOSE, FASTING 94 MG/DL (74-106); POTASSIUM SERUM 3.7 MMOL/L (3.5-5.1); SODIUM LEVEL 141 MMOL/L (136-145); TOTAL PROTEIN 5.5 G/DL (5.7-8.2)
[2022-06-19] MEDS: HEPARIN SOD (PORCINE) 5000UNITS/ML 1ML VIAL/SYRINGE SQ SCH ×2 (09:00→21:00)
[2022-06-19] MEDS: CEFDINIR 300 MG CAP (OMNICEF) PO SCH ×2 (09:41→21:04)
[2022-06-19] MEDS: LACTULOSE 20GM/30ML SYRUP UDC PO SCH ×3 (09:42→21:04)
[2022-06-19] MEDS: SUCRALFATE 1 GM TAB PO SCH ×2 (09:43→21:04)
[2022-06-19] MEDS: PANTOPRAZOLE 40MG TAB (PROTONIX) PO SCH ×2 (09:43→21:04)
[2022-06-19] MEDS: SANTYL OINT 30GM TOP SCH (09:44)
[2022-06-19] MEDS: DIMETHICONE 2% OINTMENT(VANICREAM) 70GM TUBE TOP SCH (09:44)
[2022-06-19] MEDS: DULoxetine 30MG CAPSULE (CYMBALTA) PO SCH (21:04)
[2022-06-20 05:51] VITALS: BP 125/67
[2022-06-20 05:59] LABS: BASO % 0.3 % (0.0-1.0); EOS # 0.1 10^3/uL (0.0-0.5); EOS % 1.6 % (0.0-3.0); HEMATOCRIT 32.6 % (36.0-47.0); LYMPH # 1.2 10^3/uL (1.5-5.0); LYMPH % 20.2 % (24.0-44.0); MEAN CORPUSCULAR HEMOGLOBIN 26.5 pg (27.0-33.0); MEAN CORPUSCULAR HGB CONC 30.7 g/dl (32.0-36.5); MEAN CORPUSCULAR VOLUME 86.2 fl (80.0-96.0); MONO # 0.5 10^3/uL (0.0-0.8); MONO % 7.5 % (2.0-8.0); NEUTROPHILS # 4.2 10^3/uL (1.5-8.5); NEUTROPHILS % 69.1 % (36.0-66.0); PLATELET COUNT, AUTOMATED 116 10^3/uL (150-450); RED BLOOD COUNT 3.78 10^6/uL (4.00-5.40); WHITE BLOOD COUNT 6.1 10^3/uL (4.0-10.0)
[2022-06-20 06:24] LABS: ALBUMIN 1.9 G/DL (3.2-5.2); ALKALINE PHOSPHATASE 88 U/L (46-116); ALT/SGPT 18 U/L (7.0-40); AST/SGOT 23 U/L (<34); BILIRUBIN,TOTAL 1.2 MG/DL (0.3-1.2); BLOOD UREA NITROGEN 18 MG/DL (9-23); CALCIUM LEVEL 8.1 MG/DL (8.3-10.6); CARBON DIOXIDE LEVEL 25 MMOL/L (20-31); CHLORIDE LEVEL 107 MMOL/L (98-107); CREATININE FOR GFR 0.79 MG/DL (0.55-1.30); GLOMERULAR FILTRATION RATE > 60.0 (>32); GLUCOSE, FASTING 91 MG/DL (74-106); POTASSIUM SERUM 3.6 MMOL/L (3.5-5.1); SODIUM LEVEL 142 MMOL/L (136-145); TOTAL PROTEIN 5.4 G/DL (5.7-8.2)
[2022-06-20] MEDS ORDERED: FURO40TA2 PO (08:57)
[2022-06-20] MEDS: HEPARIN SOD (PORCINE) 5000UNITS/ML 1ML VIAL/SYRINGE SQ SCH (09:00)
[2022-06-20] MEDS: LACTULOSE 20GM/30ML SYRUP UDC PO SCH (09:10)
[2022-06-20] MEDS: PANTOPRAZOLE 40MG TAB (PROTONIX) PO SCH (09:10)
[2022-06-20] MEDS: SANTYL OINT 30GM TOP SCH (09:10)
[2022-06-20] MEDS: SUCRALFATE 1 GM TAB PO SCH (09:10)
[2022-06-20] MEDS: CEFDINIR 300 MG CAP (OMNICEF) PO SCH (09:10)
[2022-06-20] MEDS: DIMETHICONE 2% OINTMENT(VANICREAM) 70GM TUBE TOP SCH (09:11)
== END 2022-06-20 13:25 | DRG 469 ==
LOC: EDBD 15:30 → M ED 15:30 → M ED INP 17:58 → ENRESERV 06-15 16:08 → M MS5PR 06-15 17:37
PROVIDERS: ADMIT Internal Medicine; ATTEND Internal Medicine
DX: N17.9 Acute kidney failure, unspecified (principal); L89.103 Pressure ulcer of unspecified part of back, stage 3; I11.0 Hypertensive heart disease with heart failure; E87.1 Hypo-osmolality and hyponatremia; I50.32 Chronic diastolic (congestive) heart failure; I27.20 Pulmonary hypertension, unspecified; I48.91 Unspecified atrial fibrillation; I35.0 Nonrheumatic aortic (valve) stenosis; N39.0 Urinary tract infection, site not specified; K75.81 Nonalcoholic steatohepatitis (NASH); Z79.899 Other long term (current) drug therapy; M10.9 Gout, unspecified; D72.829 Elevated white blood cell count, unspecified; E16.2 Hypoglycemia, unspecified; M19.90 Unspecified osteoarthritis, unspecified site

== ENCOUNTER → 2022-06-14 | Outpatient (REF) ==
[2022-06-14 13:43] LABS: HEMATOCRIT 41.7 % (36.0-47.0); HEMOGLOBIN 13.3 g/dl (12.0-15.5); MEAN CORPUSCULAR HEMOGLOBIN 27.1 pg (27.0-33.0); MEAN CORPUSCULAR HGB CONC 31.9 g/dl (32.0-36.5); MEAN CORPUSCULAR VOLUME 84.9 fl (80.0-96.0); PLATELET COUNT, AUTOMATED 185 10^3/uL (150-450); RED BLOOD COUNT 4.91 10^6/uL (4.00-5.40); WHITE BLOOD COUNT 13.3 10^3/uL (4.0-10.0)
[2022-06-14 14:00] LABS: BILIRUBIN,DIRECT 1.2 MG/DL (<0.4)
[2022-06-14 14:01] LABS: ALBUMIN 2.4 G/DL (3.2-5.2); BILIRUBIN,TOTAL 1.9 MG/DL (0.3-1.2); CALCIUM LEVEL 8.9 MG/DL (8.3-10.6); CREATININE FOR GFR 2.63 MG/DL (0.55-1.30); GLOMERULAR FILTRATION RATE 18.4 (>32); POTASSIUM SERUM 4.1 MMOL/L (3.5-5.1)
== END ==
LOC: SKLAB3 12:18
PROVIDERS: ATTEND Internal Medicine
DX: K72.90 Hepatic failure, unspecified without coma (principal)

== ENCOUNTER → 2022-06-27 | Outpatient (REF) ==
[~2022-06-27] MED LIST changes: +BISA10SU27 PR; +DULO30CA9 PO; +FLEEENE12 PR; +JUVE1POW PO; +LIDO1PAD13 TOP; +LOSA25TA13 PO; +MOM30SS2 PO; +SENN8.6T28 PO; +THERTAB19 PO
[2022-06-27 06:52] LABS: HEMATOCRIT 28.1 % (36.0-47.0); HEMOGLOBIN 8.9 g/dl (12.0-15.5); MEAN CORPUSCULAR HEMOGLOBIN 26.7 pg (27.0-33.0); MEAN CORPUSCULAR HGB CONC 31.7 g/dl (32.0-36.5); MEAN CORPUSCULAR VOLUME 84.4 fl (80.0-96.0); PLATELET COUNT, AUTOMATED 106 10^3/uL (150-450); RED BLOOD COUNT 3.33 10^6/uL (4.00-5.40); WHITE BLOOD COUNT 7.8 10^3/uL (4.0-10.0)
[2022-06-27 07:17] LABS: MAGNESIUM LEVEL 1.3 MG/DL (1.8-2.4)
[2022-06-27 07:19] LABS: ALBUMIN 1.7 G/DL (3.2-5.2); ALKALINE PHOSPHATASE 93 U/L (46-116); ALT/SGPT 15 U/L (7.0-40); AST/SGOT 18 U/L (<34); BILIRUBIN,TOTAL 1.3 MG/DL (0.3-1.2); BLOOD UREA NITROGEN 28 MG/DL (9-23); CALCIUM LEVEL 8.4 MG/DL (8.3-10.6); CARBON DIOXIDE LEVEL 28 MMOL/L (20-31); CHLORIDE LEVEL 104 MMOL/L (98-107); CREATININE FOR GFR 0.83 MG/DL (0.55-1.30); GLOMERULAR FILTRATION RATE > 60.0 (>32); GLUCOSE, FASTING 95 MG/DL (74-106); POTASSIUM SERUM 3.5 MMOL/L (3.5-5.1); SODIUM LEVEL 139 MMOL/L (136-145)
== END ==
LOC: SKLAB3 10:25
PROVIDERS: ATTEND Internal Medicine
DX: I50.9 Heart failure, unspecified (principal)

== ENCOUNTER → 2022-07-02 | Outpatient (REF) ==
[2022-07-02 20:21] LABS: APPEARANCE, URINE MANUAL HAZY (CLEAR); COLOR, URINE MANUAL YELLOW (YELLOW); SPECIFIC GRAVITY,URINE MANUAL 1.015 (1.002-1.035)
[2022-07-02 20:22] LABS: BILIRUBIN, URINE MANUAL NEGATIVE (NEGATIVE); BLOOD URINE MANUAL NEGATIVE (NEGATIVE); GLUCOSE, URINE (UA) MANUAL NEGATIVE (NEGATIVE); KETONE, URINE MANUAL NEGATIVE (NEGATIVE); LEUKOCYTE ESTERASE, URINE MAN POSITIVE (NEGATIVE); NITRITE, URINE MANUAL NEGATIVE (NEGATIVE); PROTEIN, URINE MANUAL NEGATIVE (NEGATIVE); UROBILINOGEN, URINE MANUAL NORMAL (NORMAL)
[2022-07-02 20:43] LABS: WBC, URINE 40-50 /hpf (0-3)
[2022-07-02 20:44] LABS: BACTERIA, URINE LARGE AMOUNT; SQUAMOUS EPITHELIAL CELL URINE MOD AMOUNT /hpf (SMALL AMT)
[2022-07-02 20:45] LABS: HYALINE CAST, URINE NONE SEEN /lpf (0-1)
[2022-07-02 20:46] LABS: AMORPHOUS SEDIMENT, URINE MOD AMOUNT (NEGATIVE); TRANSITIONAL EPI CELLS, URINE MOD AMOUNT /hpf
== END ==
LOC: SKLAB3 19:44
PROVIDERS: ATTEND Internal Medicine
DX: R41.0 Disorientation, unspecified (principal)

== ENCOUNTER → 2022-07-04 | Outpatient (REF) ==
[2022-07-04 14:06] LABS: ALKALINE PHOSPHATASE 133 U/L (46-116); ALT/SGPT 28 U/L (7.0-40); AST/SGOT 52 U/L (<34); BILIRUBIN,TOTAL 1.2 MG/DL (0.3-1.2); BLOOD UREA NITROGEN 28 MG/DL (9-23); CALCIUM LEVEL 8.4 MG/DL (8.3-10.6); CARBON DIOXIDE LEVEL 26 MMOL/L (20-31); CHLORIDE LEVEL 100 MMOL/L (98-107); CREATININE FOR GFR 0.85 MG/DL (0.55-1.30); GLOMERULAR FILTRATION RATE > 60.0 (>32); GLUCOSE, FASTING 91 MG/DL (74-106); POTASSIUM SERUM 4.1 MMOL/L (3.5-5.1); SODIUM LEVEL 137 MMOL/L (136-145); TOTAL PROTEIN 6.5 G/DL (5.7-8.2)
[2022-07-04 14:52] LABS: HEMATOCRIT 37.8 % (36.0-47.0); HEMOGLOBIN 11.4 g/dl (12.0-15.5); MEAN CORPUSCULAR HGB CONC 30.2 g/dl (32.0-36.5); MEAN CORPUSCULAR VOLUME 89.4 fl (80.0-96.0); PLATELET COUNT, AUTOMATED 216 10^3/uL (150-450); RED BLOOD COUNT 4.23 10^6/uL (4.00-5.40); WHITE BLOOD COUNT 11.4 10^3/uL (4.0-10.0)
[2022-07-04 15:02] LABS: APPEARANCE, URINE MANUAL CLEAR (CLEAR); BILIRUBIN, URINE MANUAL NEGATIVE (NEGATIVE); BLOOD URINE MANUAL TRACE (NEGATIVE); COLOR, URINE MANUAL YELLOW (YELLOW); GLUCOSE, URINE (UA) MANUAL NEGATIVE (NEGATIVE); KETONE, URINE MANUAL NEGATIVE (NEGATIVE); LEUKOCYTE ESTERASE, URINE MAN POSITIVE (NEGATIVE); NITRITE, URINE MANUAL NEGATIVE (NEGATIVE); PROTEIN, URINE MANUAL TRACE mg/dL (NEGATIVE); SPECIFIC GRAVITY,URINE MANUAL 1.015 (1.002-1.035); UROBILINOGEN, URINE MANUAL NORMAL (NORMAL)
[2022-07-04 15:52] LABS: BACTERIA, URINE LARGE AMOUNT; SQUAMOUS EPITHELIAL CELL URINE SMALL AMOUNT /hpf (SMALL AMT); WBC, URINE 20-30 /hpf (0-3)
== END ==
LOC: SKLAB7 11:29 → SKLAB3 11:36
PROVIDERS: ATTEND Internal Medicine
DX: R41.0 Disorientation, unspecified (principal)

== ENCOUNTER → 2022-07-20 | Outpatient (REF) ==
[2022-07-20 09:46] LABS: HEMATOCRIT 28.7 % (36.0-47.0); MEAN CORPUSCULAR HEMOGLOBIN 27.9 pg (27.0-33.0); MEAN CORPUSCULAR HGB CONC 31.4 g/dl (32.0-36.5); MEAN CORPUSCULAR VOLUME 88.9 fl (80.0-96.0); PLATELET COUNT, AUTOMATED 203 10^3/uL (150-450); RED BLOOD COUNT 3.23 10^6/uL (4.00-5.40); WHITE BLOOD COUNT 9.6 10^3/uL (4.0-10.0)
[2022-07-20 10:22] LABS: ALBUMIN 1.9 G/DL (3.2-5.2); ALKALINE PHOSPHATASE 104 U/L (46-116); ALT/SGPT 23 U/L (7.0-40); AST/SGOT 28 U/L (<34); BILIRUBIN,TOTAL 0.9 MG/DL (0.3-1.2); BLOOD UREA NITROGEN 29 MG/DL (9-23); CALCIUM LEVEL 8.2 MG/DL (8.3-10.6); CARBON DIOXIDE LEVEL 27 MMOL/L (20-31); CHLORIDE LEVEL 106 MMOL/L (98-107); CREATININE FOR GFR 0.85 MG/DL (0.55-1.30); GLOMERULAR FILTRATION RATE > 60.0 (>32); GLUCOSE, FASTING 126 MG/DL (74-106); SODIUM LEVEL 139 MMOL/L (136-145); TOTAL PROTEIN 5.6 G/DL (5.7-8.2)
== END ==
LOC: SKLAB3 08:35
PROVIDERS: ATTEND Internal Medicine
DX: K72.90 Hepatic failure, unspecified without coma (principal)

== ENCOUNTER → 2022-08-01 | Outpatient (REF) ==
[2022-08-01 14:56] LABS: HEMATOCRIT 29.7 % (36.0-47.0); HEMOGLOBIN 9.1 g/dl (12.0-15.5); MEAN CORPUSCULAR HEMOGLOBIN 27.7 pg (27.0-33.0); MEAN CORPUSCULAR HGB CONC 30.6 g/dl (32.0-36.5); MEAN CORPUSCULAR VOLUME 90.3 fl (80.0-96.0); PLATELET COUNT, AUTOMATED 266 10^3/uL (150-450); RED BLOOD COUNT 3.29 10^6/uL (4.00-5.40); WHITE BLOOD COUNT 11.5 10^3/uL (4.0-10.0)
[2022-08-01 15:27] LABS: BLOOD UREA NITROGEN 26 MG/DL (9-23); CALCIUM LEVEL 8.3 MG/DL (8.3-10.6); CARBON DIOXIDE LEVEL 27 MMOL/L (20-31); CHLORIDE LEVEL 109 MMOL/L (98-107); CREATININE FOR GFR 0.76 MG/DL (0.55-1.30); GLOMERULAR FILTRATION RATE > 60.0 (>32); GLUCOSE, FASTING 135 MG/DL (74-106); IRON (FE) 24 UG/DL (50-170); POTASSIUM SERUM 3.9 MMOL/L (3.5-5.1); SODIUM LEVEL 140 MMOL/L (136-145)
[2022-08-01 15:29] LABS: FERRITIN 1117.9 NG/ML (7.3-270.7)
== END ==
LOC: SKLAB3 13:37
PROVIDERS: ATTEND Internal Medicine
DX: J90 Pleural effusion, not elsewhere classified (principal); J98.4 Other disorders of lung; I51.7 Cardiomegaly

== ENCOUNTER → 2022-08-09 | Outpatient (REF) | payer MEDICARE, OTHER ==
[2022-08-09 07:55] LABS: ALBUMIN 1.8 G/DL (3.2-5.2); ALKALINE PHOSPHATASE 94 U/L (46-116); ALT/SGPT 14 U/L (7.0-40); AST/SGOT 22 U/L (<34); BILIRUBIN,TOTAL 0.6 MG/DL (0.3-1.2); BLOOD UREA NITROGEN 23 MG/DL (9-23); CALCIUM LEVEL 8.4 MG/DL (8.3-10.6); CARBON DIOXIDE LEVEL 32 MMOL/L (20-31); CHLORIDE LEVEL 104 MMOL/L (98-107); CREATININE FOR GFR 0.83 MG/DL (0.55-1.30); GLOMERULAR FILTRATION RATE > 60.0 (>32); GLUCOSE, FASTING 96 MG/DL (74-106); MAGNESIUM LEVEL 1.4 MG/DL (1.8-2.4); POTASSIUM SERUM 3.5 MMOL/L (3.5-5.1); SODIUM LEVEL 143 MMOL/L (136-145); TOTAL PROTEIN 5.3 G/DL (5.7-8.2)
== END ==
LOC: SKLAB3 06:52
PROVIDERS: ATTEND Internal Medicine
DX: I50.9 Heart failure, unspecified (principal)

== ENCOUNTER → 2023-01-30 | Outpatient (REF) | payer MEDICARE, OTHER ==
[~2023-01-30] MED LIST changes: -COZA50TA PO; +LOSA-528 PO; +SENN-111 PO; -SENN18TA PO
[2023-01-30 08:40] LABS: HEMATOCRIT 37.4 % (36.0-47.0); HEMOGLOBIN 11.8 g/dl (12.0-15.5); MEAN CORPUSCULAR HEMOGLOBIN 27.6 pg (27.0-33.0); MEAN CORPUSCULAR HGB CONC 31.6 g/dl (32.0-36.5); MEAN CORPUSCULAR VOLUME 87.6 fl (80.0-96.0); PLATELET COUNT, AUTOMATED 182 10^3/uL (150-450); RED BLOOD COUNT 4.27 10^6/uL (4.00-5.40); WHITE BLOOD COUNT 9.3 10^3/uL (4.0-10.0)
[2023-01-30 09:12] LABS: ALBUMIN 2.4 G/DL (3.2-5.2); ALKALINE PHOSPHATASE 110 U/L (46-116); ALT/SGPT 13 U/L (7.0-40); AST/SGOT 14 U/L (<34); BILIRUBIN,TOTAL 0.5 MG/DL (0.3-1.2); BLOOD UREA NITROGEN 47 MG/DL (9-23); CALCIUM LEVEL 9.1 MG/DL (8.3-10.6); CARBON DIOXIDE LEVEL 31 MMOL/L (20-31); CHLORIDE LEVEL 103 MMOL/L (98-107); CREATININE FOR GFR 0.84 MG/DL (0.55-1.30); GLOMERULAR FILTRATION RATE > 60.0 (>32); GLUCOSE, FASTING 106 MG/DL (74-106); MAGNESIUM LEVEL 1.5 MG/DL (1.8-2.4); POTASSIUM SERUM 3.8 MMOL/L (3.5-5.1); SODIUM LEVEL 143 MMOL/L (136-145); TOTAL PROTEIN 5.9 G/DL (5.7-8.2)
== END ==
LOC: SKLAB3 14:41
PROVIDERS: ATTEND Internal Medicine
DX: I12.9 Hypertensive chronic kidney disease with stage 1 through stage 4 chronic kidney disease, or unspecified chronic kidney disease (principal); N18.9 Chronic kidney disease, unspecified

== ENCOUNTER → 2023-04-26 | Outpatient (REF) | payer MEDICARE, OTHER ==
[2023-04-26 14:43] LABS: APPEARANCE, URINE CLOUDY (CLEAR); BACTERIA, URINE AUTO 1+ (NEGATIVE); BILIRUBIN, URINE AUTO NEGATIVE (NEGATIVE); BLOOD, URINE BLOOD 2+ (NEGATIVE); COLOR, URINE YELLOW (YELLOW); GLUCOSE, URINE (UA) AUTO NEGATIVE (NEGATIVE); KETONE, URINE AUTO NEGATIVE (NEGATIVE); LEUKOCYTE ESTERASE, URINE AUTO 3+ (NEGATIVE); MUCUS, URINE SMALL (NEGATIVE); NITRITE, URINE AUTO POSITIVE (NEGATIVE); PROTEIN, URINE AUTO NEGATIVE (NEGATIVE); RBC, URINE AUTO 33 /HPF (0-3); SPECIFIC GRAVITY URINE AUTO 1.009 (1.002-1.035); SQUAMOUS EPITHELIAL CELL UR AU 0 /HPF (0-6); UROBILINOGEN, URINE AUTO 0.2 mg/dL (0.0-2.0); WBC, URINE AUTO 151 /HPF (0-3)
== END ==
LOC: SKLAB3 14:22
PROVIDERS: ATTEND Internal Medicine
DX: R82.89 Other abnormal findings on cytological and histological examination of urine (principal)

== ENCOUNTER → 2023-05-01 | Outpatient (REF) | payer MEDICARE, OTHER | LOC: SKLAB3 10:21 | PROVIDERS: ATTEND Internal Medicine | DX: Z53.8 Procedure and treatment not carried out for other reasons (principal) ==

== ENCOUNTER → 2023-05-02 | Outpatient (CLI) | payer MEDICARE, OTHER | LOC: M RAD 13:22 | PROVIDERS: ATTEND Internal Medicine | DX: N93.9 Abnormal uterine and vaginal bleeding, unspecified (principal); Z90.710 Acquired absence of both cervix and uterus ==

== ENCOUNTER → 2023-08-01 | Outpatient (REF) ==
[2023-08-01 15:20] LABS: BASO % 0.2 % (0.0-1.0); EOS # 0.3 10^3/uL (0.0-0.5); EOS % 2.6 % (0.0-3.0); HEMATOCRIT 34.9 % (36.0-47.0); LYMPH # 0.8 10^3/uL (1.5-5.0); LYMPH % 6.1 % (24.0-44.0); MEAN CORPUSCULAR HEMOGLOBIN 27.9 pg (27.0-33.0); MEAN CORPUSCULAR HGB CONC 31.5 g/dl (32.0-36.5); MEAN CORPUSCULAR VOLUME 88.6 fl (80.0-96.0); MONO # 0.5 10^3/uL (0.0-0.8); NEUTROPHILS # 10.7 10^3/uL (1.5-8.5); NEUTROPHILS % 86.5 % (36.0-66.0); PLATELET COUNT, AUTOMATED 173 10^3/uL (150-450); RED BLOOD COUNT 3.94 10^6/uL (4.00-5.40); WHITE BLOOD COUNT 12.4 10^3/uL (4.0-10.0)
[2023-08-01 16:01] LABS: BLOOD UREA NITROGEN 28 MG/DL (9-23); CALCIUM LEVEL 7.6 MG/DL (8.3-10.6); CARBON DIOXIDE LEVEL 31 MMOL/L (20-31); CHLORIDE LEVEL 106 MMOL/L (98-107); CREATININE FOR GFR 0.77 MG/DL (0.55-1.30); GLOMERULAR FILTRATION RATE > 60.0 (>32); GLUCOSE, FASTING 138 MG/DL (74-106); POTASSIUM SERUM 2.8 MMOL/L (3.5-5.1); SODIUM LEVEL 142 MMOL/L (136-145)
== END ==
LOC: SKLAB3 14:33
PROVIDERS: ATTEND Internal Medicine
DX: R06.2 Wheezing (principal); I50.9 Heart failure, unspecified

== ENCOUNTER → 2023-08-07 | Outpatient (REF) ==
[2023-08-07 13:13] LABS: HEMATOCRIT 36.1 % (36.0-47.0); HEMOGLOBIN 11.4 g/dl (12.0-15.5); MEAN CORPUSCULAR HEMOGLOBIN 28.3 pg (27.0-33.0); MEAN CORPUSCULAR HGB CONC 31.6 g/dl (32.0-36.5); MEAN CORPUSCULAR VOLUME 89.6 fl (80.0-96.0); PLATELET COUNT, AUTOMATED 231 10^3/uL (150-450); RED BLOOD COUNT 4.03 10^6/uL (4.00-5.40); WHITE BLOOD COUNT 13.3 10^3/uL (4.0-10.0)
[2023-08-07 13:40] LABS: ALBUMIN 1.9 G/DL (3.2-5.2); ALKALINE PHOSPHATASE 110 U/L (46-116); ALT/SGPT 11 U/L (7.0-40); AST/SGOT 13 U/L (<34); BILIRUBIN,TOTAL 0.4 MG/DL (0.3-1.2); BLOOD UREA NITROGEN 27 MG/DL (9-23); CALCIUM LEVEL 8.4 MG/DL (8.3-10.6); CARBON DIOXIDE LEVEL 30 MMOL/L (20-31); CHLORIDE LEVEL 102 MMOL/L (98-107); CREATININE FOR GFR 0.89 MG/DL (0.55-1.30); GLOMERULAR FILTRATION RATE > 60.0 (>32); GLUCOSE, FASTING 100 MG/DL (74-106); MAGNESIUM LEVEL 1.1 MG/DL (1.8-2.4); POTASSIUM SERUM 4.4 MMOL/L (3.5-5.1); SODIUM LEVEL 139 MMOL/L (136-145); TOTAL PROTEIN 5.6 G/DL (5.7-8.2)
== END ==
LOC: SKLAB3 10:23
PROVIDERS: ATTEND Internal Medicine
DX: D64.9 Anemia, unspecified (principal); K74.60 Unspecified cirrhosis of liver

== ENCOUNTER → 2023-08-08 | Outpatient (REF) ==
[2023-08-08 10:30] LABS: BLOOD UREA NITROGEN 24 MG/DL (9-23); CALCIUM LEVEL 8.2 MG/DL (8.3-10.6); CARBON DIOXIDE LEVEL 32 MMOL/L (20-31); CHLORIDE LEVEL 101 MMOL/L (98-107); CREATININE FOR GFR 0.87 MG/DL (0.55-1.30); GLOMERULAR FILTRATION RATE > 60.0 (>32); GLUCOSE, FASTING 128 MG/DL (74-106); POTASSIUM SERUM 4.4 MMOL/L (3.5-5.1); SODIUM LEVEL 140 MMOL/L (136-145)
== END ==
LOC: SKLAB3 07:33
PROVIDERS: ATTEND Internal Medicine
DX: E87.6 Hypokalemia (principal)

== ENCOUNTER → 2023-08-28 | Outpatient (REF) | payer MEDICARE, OTHER ==
[2023-08-28 13:44] LABS: BASO # 0.1 10^3/uL (0.0-0.2); BASO % 0.4 % (0.0-1.0); EOS # 0.1 10^3/uL (0.0-0.5); EOS % 0.5 % (0.0-3.0); HEMATOCRIT 41.3 % (36.0-47.0); HEMOGLOBIN 13.2 g/dl (12.0-15.5); LYMPH # 1.4 10^3/uL (1.5-5.0); LYMPH % 5.9 % (24.0-44.0); MEAN CORPUSCULAR HEMOGLOBIN 28.4 pg (27.0-33.0); MONO # 1.1 10^3/uL (0.0-0.8); MONO % 4.7 % (2.0-8.0); NEUTROPHILS # 20.1 10^3/uL (1.5-8.5); NEUTROPHILS % 86.9 % (36.0-66.0); PLATELET COUNT, AUTOMATED 342 10^3/uL (150-450); RED BLOOD COUNT 4.64 10^6/uL (4.00-5.40); WHITE BLOOD COUNT 23.2 10^3/uL (4.0-10.0)
[2023-08-28 13:53] LABS: ERYTHROCYTE SEDIMENTATION RATE > 130 mm/hr (0-30)
[2023-08-28 13:57] LABS: INR 1.44; PROTHROMBIN TIME 17.1 SECONDS (12.5-14.5)
[2023-08-28 14:08] LABS: ALBUMIN 2.2 G/DL (3.2-5.2); ALKALINE PHOSPHATASE 123 U/L (46-116); ALT/SGPT < 9 U/L (7.0-40); AST/SGOT 19 U/L (<34); BILIRUBIN,TOTAL 0.7 MG/DL (0.3-1.2); BLOOD UREA NITROGEN 69 MG/DL (9-23); CALCIUM LEVEL 8.9 MG/DL (8.3-10.6); CARBON DIOXIDE LEVEL 22 MMOL/L (20-31); CHLORIDE LEVEL 102 MMOL/L (98-107); CREATININE FOR GFR 1.05 MG/DL (0.55-1.30); GLOMERULAR FILTRATION RATE 52.9 (>32); GLUCOSE, FASTING 126 MG/DL (74-106); POTASSIUM SERUM 5.7 MMOL/L (3.5-5.1); SODIUM LEVEL 132 MMOL/L (136-145)
== END ==
LOC: SKLAB3 12:35
PROVIDERS: ATTEND Nurse Practitioner Family
DX: I50.9 Heart failure, unspecified (principal); G93.41 Metabolic encephalopathy; R61 Generalized hyperhidrosis; Z79.899 Other long term (current) drug therapy